=== PATIENT | male | born 1960 | race Caucasian/White ===

== ENCOUNTER → 2016-06-12 | Outpatient (CLI) | payer OTHER ==
[2016-06-12 10:29] LABS: MEAN CORPUSCULAR HEMOGLOBIN 31.4 pg (27.0-33.0); MEAN CORPUSCULAR VOLUME 89.7 fl (80.0-96.0); RED CELL DISTRIBUTION WIDTH 12.7 % (11.5-14.5); WHITE BLOOD COUNT 5.5 K/mm3 (4.0-10.0)
[2016-06-12 11:01] LABS: ALBUMIN 3.9 GM/DL (3.2-5.2); ALBUMIN/GLOBULIN RATIO 1.08 (1.00-1.93); ALKALINE PHOSPHATASE 100 U/L (45-117); ALT/SGPT 27 U/L (12-78); ANION GAP 4 MEQ/L (8-16); AST/SGOT 21 U/L (15-37); BILIRUBIN,TOTAL 0.9 MG/DL (0.2-1.0); BLOOD UREA NITROGEN 14 MG/DL (7-18); CALCIUM LEVEL 8.8 MG/DL (8.5-10.1); CARBON DIOXIDE LEVEL 33 MEQ/L (21-32); CHLORIDE LEVEL 104 MEQ/L (98-107); CHOLESTEROL LEVEL 178 MG/DL (<200); CREATININE FOR GFR 0.86 MG/DL (0.70-1.30); GLOMERULAR FILTRATION RATE > 60.0 (>56); GLUCOSE, FASTING 117 MG/DL (70-105); SODIUM LEVEL 141 MEQ/L (136-145); TOTAL PROTEIN 7.5 GM/DL (6.4-8.2); TRIGLYCERIDES LEVEL 121 MG/DL (<150)
--- NOTE | 2016-06-12 15:08 | REP ---
Chest two views HISTORY: Hypertension Comparison: 04/19/2015 An increase in interstitial markings is present in the lungs consistent with chronic interstitial change. The cardiac silhouette is enlarged. The pulmonary vasculature is normal in appearance. The bony structure is intact. IMPRESSION: 1. Chronic interstitial change. 2. Cardiomegaly. Signed by Vargas Thomas MD 06/12/2016 09:22 A
--- NOTE | 2016-06-12 17:51 | ECGEPIP ---
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
== END ==
LOC: M LAB 08:54
PROVIDERS: ATTEND Family Medicine
DX: I10 Essential (primary) hypertension (principal); R53.83 Other fatigue; I51.7 Cardiomegaly; J98.4 Other disorders of lung; R00.1 Bradycardia, unspecified

== ENCOUNTER → 2018-04-30 | Outpatient (CLI) | payer OTHER ==
[2018-04-30 11:03] LABS: HEMATOCRIT 44.2 % (42.0-52.0); HEMOGLOBIN 14.8 g/dl (13.5-17.5); MEAN CORPUSCULAR HEMOGLOBIN 29.7 pg (27.0-33.0); MEAN CORPUSCULAR HGB CONC 33.5 g/dl (32.0-36.5); MEAN CORPUSCULAR VOLUME 88.6 fl (80.0-96.0); PLATELET COUNT, AUTOMATED 183 10^3/uL (150-450); RED BLOOD COUNT 4.99 10^6/uL (4.30-6.10); WHITE BLOOD COUNT 5.1 10^3/uL (4.0-10.0)
[2018-04-30 11:30] LABS: HEMOGLOBIN A1c 7.9 %
[2018-04-30 11:38] LABS: ALBUMIN 3.7 GM/DL (3.2-5.2); ALT/SGPT 62 U/L (12-78); BILIRUBIN,TOTAL 1.4 MG/DL (0.2-1.0); BLOOD UREA NITROGEN 13 MG/DL (7-18); CALCIUM LEVEL 8.3 MG/DL (8.5-10.1); CARBON DIOXIDE LEVEL 31 MEQ/L (21-32); CHLORIDE LEVEL 106 MEQ/L (98-107); CHOLESTEROL LEVEL 148 MG/DL (<200); CHOLESTEROL RISK RATIO 5.481 (<5); CREATININE FOR GFR 0.85 MG/DL (0.70-1.30); GLOMERULAR FILTRATION RATE > 60.0 (>56); GLUCOSE, FASTING 118 MG/DL (70-100); HDL CHOLESTEROL 27 MG/DL (>40); LDL CHOLESTEROL 104 MG/DL (<100); NON-HDL-C 121 MG/DL; POTASSIUM SERUM 4.4 MEQ/L (3.5-5.1); SODIUM LEVEL 140 MEQ/L (136-145); THYROID STIMULATING HORMONE 0.319 uIU/ML (0.358-3.740); TOTAL PROTEIN 7.2 GM/DL (6.4-8.2); TRIGLYCERIDES LEVEL 84 MG/DL (<150)
[2018-05-01 10:18] LABS: TESTOSTERONE 428 NG/DL (241-827)
== END ==
LOC: M LAB 09:36
PROVIDERS: ATTEND Family Medicine
DX: I10 Essential (primary) hypertension (principal); R53.83 Other fatigue; N40.0 Benign prostatic hyperplasia without lower urinary tract symptoms; E29.1 Testicular hypofunction
CPT/HCPCS: 36415; 80053; 80061; 83036; 84403; 84443; 85027; G0103

== ENCOUNTER → 2019-07-16 | Outpatient (CLI) | payer OTHER ==
[2019-07-16 13:31] LABS: HEMATOCRIT 47.8 % (42.0-52.0); HEMOGLOBIN 16.5 g/dl (13.5-17.5); MEAN CORPUSCULAR HEMOGLOBIN 30.4 pg (27.0-33.0); MEAN CORPUSCULAR HGB CONC 34.5 g/dl (32.0-36.5); MEAN CORPUSCULAR VOLUME 88.2 fl (80.0-96.0); PLATELET COUNT, AUTOMATED 181 10^3/uL (150-450); RED BLOOD COUNT 5.42 10^6/uL (4.30-6.10); WHITE BLOOD COUNT 7.3 10^3/uL (4.0-10.0)
[2019-07-16 13:52] LABS: HEMOGLOBIN A1c 7.8 %
[2019-07-16 14:06] LABS: TESTOSTERONE 343 NG/DL (241-827)
[2019-07-16 14:22] LABS: ALT/SGPT 28 U/L (12-78); BILIRUBIN,TOTAL 1.5 MG/DL (0.2-1.0); BLOOD UREA NITROGEN 14 MG/DL (7-18); CALCIUM LEVEL 8.8 MG/DL (8.5-10.1); CARBON DIOXIDE LEVEL 27 MEQ/L (21-32); CHLORIDE LEVEL 102 MEQ/L (98-107); CHOLESTEROL LEVEL 198 MG/DL (<200); CHOLESTEROL RISK RATIO 5.823 (<5); CREATININE FOR GFR 0.74 MG/DL (0.70-1.30); GLOMERULAR FILTRATION RATE > 60.0 (>56); GLUCOSE, FASTING 142 MG/DL (70-100); HDL CHOLESTEROL 34 MG/DL (>40); LDL CHOLESTEROL 136 MG/DL (<100); NON-HDL-C 164 MG/DL; POTASSIUM SERUM 3.9 MEQ/L (3.5-5.1); PROSTATIC SPECIFIC AG MONITOR 0.46 NG/ML (< 4.00); SODIUM LEVEL 137 MEQ/L (136-145); THYROID STIMULATING HORMONE 0.525 uIU/ML (0.358-3.740); TRIGLYCERIDES LEVEL 138 MG/DL (<150)
--- NOTE | 2019-07-17 02:24 | REP ---
Clinical: Hypertension and fatigue. Technique: PA and lateral. Comparison: 06/12/2016. Findings: Mediastinum and cardiac silhouette are normal. Diffuse chronic COPD/emphysematous changes and scattered fibrosis/scarring are again suggested and relatively stable. No obvious acute consolidation, effusion, or pneumothorax. Skeletal structures are intact. Impression: Chronic stable changes. Electronically Signed by Ciaran Brody MD 07/17/2019 02:14 A
--- NOTE | 2019-07-18 07:41 | ECGEPIP ---
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
== END ==
LOC: M LAB 12:28
PROVIDERS: ATTEND Family Medicine
DX: I10 Essential (primary) hypertension (principal)

== ENCOUNTER 2019-12-01 15:13 | Inpatient (IN) | payer OTHER ==
[~2019-12-01] VITALS: Ht 185.4 cm; Wt 109.0 kg
[2019-12-01] MEDS ORDERED: NS 1,000 ML IV SCH ×2 (16:00→18:30)
[2019-12-01] MEDS ORDERED: ceFAZolin SOD 2 GM in IV 1 EA IV ONE (16:00)
--- NOTE | 2019-12-01 16:01 | REPVR ---
PROCEDURE INFORMATION: Exam: XR Left Finger(s) Exam date and time: 12/01/2019 3:23 PM Age: 59 years old Clinical indication: Injury or trauma; Other: Woodsplitter; Amputation, traumatic; Hand; Right; Additional info: Woodsplitter versus index finger TECHNIQUE: Imaging protocol: XR Left fingers. Views: Minimum 2 views. COMPARISON: No relevant prior studies available. FINDINGS: Bones/joints: Moderately displaced acute fracture of the distal metaphysis of the middle phalanx of the 2nd digit. Soft tissues: Generalized soft tissue swelling of the distal 2nd digit. IMPRESSION: Moderately displaced acute fracture of the distal metaphysis of the middle phalanx of the 2nd digit. Recommend orthopedic surgical consultation. Electronically signed by: Víctor Diez On 12/01/2019 16:00:47 PM
[2019-12-01] MEDS ORDERED: BOOSTRIX/ADACEL VACCINE (DIPHTH/PERTUSS/ACELL/TETANUS) 0.5ML SYR IM ONE (16:15)
[2019-12-01 16:21] LABS: BASO # 0.1 10^3/uL (0.0-0.2); EOS # 0.3 10^3/uL (0.0-0.5); EOS % 4.3 % (0.0-3.0); HEMATOCRIT 47.1 % (42.0-52.0); HEMOGLOBIN 15.4 g/dl (13.5-17.5); LYMPH # 1.9 10^3/uL (1.5-5.0); LYMPH % 23.5 % (24.0-44.0); MEAN CORPUSCULAR HGB CONC 32.7 g/dl (32.0-36.5); MEAN CORPUSCULAR VOLUME 88.7 fl (80.0-96.0); MONO # 0.5 10^3/uL (0.0-0.8); MONO % 6.6 % (0.0-5.0); NEUTROPHILS # 5.1 10^3/uL (1.5-8.5); NEUTROPHILS % 64.3 % (36.0-66.0); PLATELET COUNT, AUTOMATED 205 10^3/uL (150-450); RED BLOOD COUNT 5.31 10^6/uL (4.30-6.10); WHITE BLOOD COUNT 7.9 10^3/uL (4.0-10.0)
[2019-12-01 16:43] LABS: BLOOD UREA NITROGEN 17 MG/DL (7-18); CALCIUM LEVEL 8.7 MG/DL (8.5-10.1); CARBON DIOXIDE LEVEL 27 MEQ/L (21-32); CHLORIDE LEVEL 105 MEQ/L (98-107); CREATININE FOR GFR 1.05 MG/DL (0.70-1.30); GLOMERULAR FILTRATION RATE > 60.0 (>56); GLUCOSE, FASTING 139 MG/DL (70-100); POTASSIUM SERUM 3.7 MEQ/L (3.5-5.1); SODIUM LEVEL 139 MEQ/L (136-145)
[2019-12-01] MEDS ORDERED: VALS80TA PO (16:44)
[2019-12-01] MEDS ORDERED: OMEP-218 PO (16:44)
[2019-12-01] MEDS ORDERED: METF500T13 PO (16:44)
[2019-12-01] MEDS ORDERED: ATOR1TAB21 PO (16:44)
[2019-12-01] MEDS ORDERED: FLUTISP NARES (17:16)
[2019-12-01] MEDS ORDERED: propofoL 200 MG/20 ML VIAL As Ordered ONE ×3 (17:59→18:48)
[2019-12-01] MEDS ORDERED: LIDOCAINE 2% 100MG/5ML SDV (FOR ANES.) As Ordered ONE (17:59)
[2019-12-01] MEDS ORDERED: MIDAZOLAM INJ 2MG/2ML VIAL (J2250 PER 1MG) As Ordered ONE (17:59)
[2019-12-01] MEDS ORDERED: fentaNYL 100 MCG/2 ML INJECTION (J3010) As Ordered ONE (17:59)
[2019-12-01] MEDS ORDERED: BUPIVACAINE/EPIN 0.5% 30 ML VIAL As Ordered ONE (18:03)
[2019-12-01] MEDS ORDERED: ACETAMINOPHEN TAB 650MG DOSE (2X325MG) PO PRN (18:30)
[2019-12-01] MEDS ORDERED: ceFAZolin SOD 2 GM in D5W MINI-BAG PLUS 50 ML IV SCH (18:30)
[2019-12-01] MEDS ORDERED: SUCCINYLCHOLINE 100 MG/5 ML SYRINGE (J0330) As Ordered ONE (19:02)
[2019-12-01] MEDS ORDERED: KETOROLAC 60MG 2ML VIAL As Ordered ONE (19:03)
[2019-12-01] MEDS ORDERED: ONDANSETRON 4MG/2ML VIAL As Ordered ONE (19:03)
[2019-12-01] MEDS ORDERED: dexameTHASONE 4 MG/ML 1ML VIAL (J1100 PER 1MG) As Ordered ONE (19:03)
[2019-12-01] MEDS ORDERED: METOCLOPRAMIDE INJ 10MG/2ML VIAL (J2765 PER 1) As Ordered ONE (19:04)
[2019-12-01] MEDS ORDERED: ACETAMINOPHEN 1000MG 100ML IV BTL (OFIRMEV) (J0131 PER 10MG) As Ordered ONE (19:05)
[2019-12-01] MEDS ORDERED: ceFAZolin 1GM VIAL (J0690 PER 500MG) As Ordered ONE (19:09)
[2019-12-01] MEDS ORDERED: ALBUTEROL 6.7GM INHALER **FOR ANES. CART/OMNICELL ONLY As Ordered ONE (19:14)
--- NOTE | 2019-12-01 19:53 | REP ---
INDICATION: SURGERY COMPARISON: 12/01/2019 at 3:27 p.m. TECHNIQUE: Intraoperative fluoroscopic imaging using portable C-arm technique. FINDINGS: Partial amputation at the level of the 2nd digit middle phalanx with overlying soft tissue laceration. Total fluoroscopic time 8 seconds IMPRESSION: Status post partial amputation to the 2nd digit. <Electronically signed by Ciaran Brody > 12/01/19 1950
[2019-12-01 21:00] VITALS: BP 157/92
[2019-12-01] MEDS ORDERED: fentaNYL 100 MCG/2 ML INJECTION (J3010) IV PRN (21:00)
[2019-12-01] MEDS ORDERED: LR 1,000 ML IV SCH (21:00)
[2019-12-01] MEDS ORDERED: oxyCODONE 5MG TAB PO PRN (21:00)
[2019-12-01] MEDS ORDERED: PERCOCET 5MG/325MG TAB PO PRN (21:00)
[2019-12-01] MEDS ORDERED: ONDANSETRON 4MG/2ML VIAL IV PRN ×2 (21:00)
[2019-12-01] MEDS ORDERED: MORPHINE 2 MG/ML 1ML VIAL (J2270) IV PRN (21:00)
[2019-12-01 21:30] VITALS: BP 142/76
[2019-12-01 22:30] VITALS: BP 157/88
[2019-12-01 23:30] VITALS: BP 148/87
[2019-12-02 00:30] VITALS: BP_SYST 14; BP_SYST 144; BP_DIAS 84
[2019-12-02] MEDS: ceFAZolin SOD 2 GM in IV 1 EA IV SCH ×2 (00:39→08:34)
[2019-12-02 01:30] VITALS: BP 134/61
[2019-12-02 06:00] VITALS: BP 137/71
--- NOTE | 2019-12-03 13:04 | RO ---
DATE OF OPERATION: 12/01/2019 PREOPERATIVE DIAGNOSIS: Left index finger middle phalanx fracture, laceration and crush injury with extensor tendon laceration and collateral ligament injury. POSTOPERATIVE DIAGNOSIS: Left index finger middle phalanx fracture, laceration and crush injury with extensor tendon laceration and collateral ligament injury. PLANNED PROCEDURE: Left index finger revision amputation and irrigation and debridement. PROCEDURE PERFORMED: Left index finger revision amputation and irrigation and debridement. SURGEON: Benjamin Jay MD ANESTHESIA: Dr. Bennie Gorman TYPE OF ANESTHETIC: General anesthetic. OPERATIVE PREAMBLE: This 69-year-old man sustained an open finger fracture of left index finger after having it crushed by wood splitter. We discussed pros, cons, risks and benefits with going ahead with revision amputation of the left index finger. He wished to go ahead. Marked the left upper extremity and proceeded to surgery. OPERATIVE REPORT: The patient was brought to operating theater. He was administered general anesthetic. He was placed supine on the operating table. 2 gm of Ancef had been administered in the emergency department. Hand table was used for the patients left side. Tourniquet was applied to the upper extremity. All bony prominences were padded. SCDs were used on the down legs as well as bear hugger. Bed was turned 90 degrees. Limb was prepped and draped in usual sterile fashion with Iodine-based prep solution. Preoperative time out was performed confirming side, patient and surgery. I began by inflating the tourniquet to 250 mmHg. I examined the wound upon thorough irrigation using 3 liters normal saline and 3 gm of Ancef solution. I examined the fracture. This is a crush type injury with interarticular fracture of the distal aspect of the middle phalanx. Middle phalanx was slightly shortened. Distal aspect of the phalanx was removed. I used the skin on the plantar aspect of the finger to bring that around the distal aspect of the middle phalanx bone, smoothed out the distal phalanx portion. I took intraoperative AP and lateral radiographs to ensure that the contours were smooth and appropriately resected. There was another small laceration transversely on the palmar aspect of the digit that I sutured with 3-0 Vicryl and 3-0 Ethilon. This was a fishmouth type closure and I also used the preexisting dorsal oblique laceration incorporated into soft tissue repair. The subcutaneous tissue was closed with interrupted 2-0 Vicryl sutures and skin with 3-0 Ethilon. 1 mL of 0.5% Bupivacaine plain was used in and around the incision site. Tourniquet was taken down prior to the end of the case and hemostasis achieved. Skin was cleaned with wet-to-dry followed by Adaptic, ice, over- wrapped with Osorio type dressing. The patient was awoken from general anesthesia and transferred off the operating table and taken to postanesthesia care unit in stable condition. All sponge, instrument and needle counts were correct. No complications. Estimated blood loss 10 mL. Plan for patient is start immediate range of motion, change dressing daily and call the office within the next 4-5 days or other issues. Ice and elevation for pain control as well as I have given a small prescription for Percocet 5/325 mg tablets as well as starting him on oral Keflex 500 mg PO four times daily for the next 7 days to prevent infection. I will see him in follow up. I communicated with the patients after the surgery as well. TAMANNA
--- NOTE | 2019-12-04 07:00 | HPE ---
DATE OF ADMISSION: 12/01/2019 CHIEF COMPLAINT: Left index finger middle phalanx laceration and open fracture. HISTORY OF PRESENT ILLNESS: This pleasant 59-year-old man right hand dominant was seen today in the emergency department at [facility]. He sustained an injury to his left index finger at about 03/2019 this afternoon, about an hour before I saw him. He was administered tetanus and cefazolin antibiotics for prophylaxis. No prior history of pain or problems with the finger. N.p.o. since this morning only some Cheetos, but he also had some water prior to presenting to the emergency department. He was splitting wood with the help of his . His was operating the hand controls of the wood splitter. He had his hand on top of the machine, his tripped, and pulled the lever of the splitting device that came down onto the dorsum of his left index finger causing a soft tissue laceration crushing to the region of his index finger. PAST MEDICAL HISTORY: 1. Dyslipidemia. 2. Hypertension. 3. Diabetes. MEDICATIONS: He is unsure, but he is on something for hypertension, dyslipidemia, and metformin. No anticoagulants. ALLERGIES: DOXYCYCLINE PAST SURGICAL HISTORY: Knee arthroscopy procedure. 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 He does not smoke or use street drugs or alcohol. PHYSICAL EXAMINATION: He is a well-appearing and pleasant 59-year-old man in no acute distress. In terms of his left index finger, he has a dorsal laceration on the entire dorsum of the middle finger just proximal to the distal interphalangeal (DIP) joint. There is exposed phalanx. The extensor tendon is crushed and macerated. The joint is dislocated and has valgus deformity. The tip of the finger is warm and well-perfused. Good capillary refill. No nail injury. He is able to flex the DIP, but not extend. There is also a laceration transversely at the volar side of the finger at the DIP crease. The distal aspect of the finger is obviously unstable to varus stress. No other injury. Hand is warm and well-perfused. Strong radial pulse. IMAGING: Radiographs are reviewed of the left hand. This shows a complex intraarticular fracture of the distal end of the middle phalanx. It appears to be a condylar fracture with lateral subluxation, shortening, and dislocation of the DIP joint with the distal fragment going radially. There is an obvious open soft tissue injury. ASSESSMENT AND PLAN: This 59-year-old man has a complex injury open fracture intraarticular fracture to the distal aspect of the middle phalanx with intraarticular involvement, complex maceration of the joint, and obvious collateral ligament injury. I talked about his options, which include revision amputation versus referral to a hand specialist for open reduction internal fixation of the phalanx fracture, possible repair versus reconstruction of the extensor tendon and possible need for repair or reconstruction of the collateral ligament. He wished to go ahead with immediate revision amputation after discussion of the pros and cons, risks and benefits of each method of treatment. Typically with shortening the index finger, the middle finger takes over as the dominant finger of the hand and this is also on his nondominant side. We discussed the surgical risks of revision amputation and shortening the digit which include, but are not limited to infection, higher due to the type of wound that he has, as well as the soft tissue crush aspect of this, as well as neurovascular injury, pain, weakness, stiffness, damage to surrounding structures, need for further surgery, weakness of the finger, damage to other structures, anesthetic complications, blood clots, and other risks, need for further surgery. He wished to go ahead and signed the consent form for surgery. We will keep him fasting in preparation for revision amputation of his left index finger. He also signed the consent form for possible for blood products, and I explained the pros, cons, risks, and benefits of that as well. We have placed wet gauze over top of the open fracture while he is planning surgery. He had no further questions. TAMANNA
--- NOTE | 2019-12-11 13:04 | DS ---
DATE OF ADMISSION: 12/01/2019 DATE OF DISCHARGE: 12/02/2019 ATTENDING PHYSICIAN: Benjamin Jay M.D. ADMITTING DIAGNOSIS: Left finger middle phalanx fracture, laceration and crush injury with extensor tendon laceration and collateral ligament injury. OTHER DIAGNOSES: * Dyslipidemia. * Hypertension. * Diabetes. DISCHARGE DIAGNOSIS: Left index finger middle phalanx fracture/laceration and crush injury with extensor tendon laceration and collateral ligament injury status post left index finger revision, amputation and irrigation and debridement. HISTORY: Patient is a 59-year-old male that sustained an injury to his left index finger. He was splitting wood to help his . His was operating the hand controls of the wood splitter. He had his hand on top of the machine and his tripped pulling the lever off the splitting device that came down on the dorsal surface of his left index finger causing a soft tissue laceration/crushing injury to the region of the left index finger. OPERATION PERFORMED: Left index finger revision, amputation and irrigation and debridement. HOSPITAL COURSE: The patient underwent a left index finger revision, amputation and irrigation and debridement under general anesthesia which was uneventful. His hospital course was without complication. He was discharged on oral pain medications and will resume his pre-operative medications and diet. He will take his antibiotic as directed to prevent infection. He will ice and elevate for pain control. He will follow up in our office in 1 week or sooner if there is any increase in pain, redness, drainage, numbness or tingling, fever greater than 101 degrees or any other concerns. Please see medical records for additional details. TAMANNA
== END 2019-12-02 11:00 | disposition home or self-care (01) | DRG 514 ==
LOC: M ED 15:13 → M ED INP 18:16 → M MS5PR 20:50
PROVIDERS: ADMIT Orthopaedic Surgery Sports Medicine; ATTEND Orthopaedic Surgery Sports Medicine
PROC: 0JQK0ZZ Repair Left Hand Subcutaneous Tissue and Fascia, Open Approach (ICD-10-PCS; 2019-12-01)
PROC: 0X6R0Z3 Detachment at Left Middle Finger, Low, Open Approach (ICD-10-PCS; principal; 2019-12-01 17:49)
DX: S62.621B Displaced fracture of middle phalanx of left index finger, initial encounter for open fracture (principal); E78.5 Hyperlipidemia, unspecified; S67.192A Crushing injury of right middle finger, initial encounter; I10 Essential (primary) hypertension; E11.9 Type 2 diabetes mellitus without complications; W31.89XA Contact with other specified machinery, initial encounter; Y92.009 Unspecified place in unspecified non-institutional (private) residence as the place of occurrence of the external cause; Y93.H9 Activity, other involving exterior property and land maintenance, building and construction; Y99.8 Other external cause status; Z79.84 Long term (current) use of oral hypoglycemic drugs; Z79.899 Other long term (current) drug therapy

== ENCOUNTER → 2020-02-16 | Outpatient (CLI) | payer OTHER ==
[~2020-02-16] MED LIST: ATOR1TAB21 PO; FLUTISP NARES; METF500T13 PO; OMEP-218 PO; VALS80TA PO
[2020-02-16 18:39] LABS: HEMATOCRIT 47.3 % (42.0-52.0); HEMOGLOBIN 15.2 g/dl (13.5-17.5); MEAN CORPUSCULAR HEMOGLOBIN 28.7 pg (27.0-33.0); MEAN CORPUSCULAR HGB CONC 32.1 g/dl (32.0-36.5); MEAN CORPUSCULAR VOLUME 89.4 fl (80.0-96.0); PLATELET COUNT, AUTOMATED 207 10^3/uL (150-450); RED BLOOD COUNT 5.29 10^6/uL (4.30-6.10); WHITE BLOOD COUNT 6.3 10^3/uL (4.0-10.0)
[2020-02-16 18:54] LABS: ALT/SGPT 25 U/L (12-78); BLOOD UREA NITROGEN 23 MG/DL (7-18); CALCIUM LEVEL 8.5 MG/DL (8.5-10.1); CARBON DIOXIDE LEVEL 27 MEQ/L (21-32); CHLORIDE LEVEL 102 MEQ/L (98-107); CREATININE FOR GFR 1.01 MG/DL (0.70-1.30); GLOMERULAR FILTRATION RATE > 60.0 (>56); GLUCOSE, FASTING 190 MG/DL (70-100); POTASSIUM SERUM 3.9 MEQ/L (3.5-5.1); SODIUM LEVEL 136 MEQ/L (136-145)
[2020-02-16 18:55] LABS: ALBUMIN 3.7 GM/DL (3.2-5.2); CHOLESTEROL LEVEL 176 MG/DL (<200); HDL CHOLESTEROL 40 MG/DL (>40); LDL CHOLESTEROL 117 MG/DL (<100); NON-HDL-C 136 MG/DL; PROSTATIC SPECIFIC AG MONITOR 0.45 NG/ML (< 4.00); THYROID STIMULATING HORMONE 0.766 uIU/ML (0.358-3.740); TOTAL PROTEIN 7.6 GM/DL (6.4-8.2); TRIGLYCERIDES LEVEL 95 MG/DL (<150)
[2020-02-16 19:00] LABS: HEMOGLOBIN A1c 6.9 %
[2020-02-18 11:02] LABS: TESTOSTERONE 290 NG/DL (241-827)
== END ==
LOC: M WUC 09:05
PROVIDERS: ATTEND Family Medicine
DX: E03.9 Hypothyroidism, unspecified (principal); I10 Essential (primary) hypertension; E11.9 Type 2 diabetes mellitus without complications; R53.83 Other fatigue

== ENCOUNTER 2020-03-15 07:34 | Emergency (ER) | payer OTHER ==
[~2020-03-15] VITALS: Ht 185.4 cm; Wt 113.7 kg
--- OUTSIDE RECORDS SUMMARY | 2020-03-15 07:40 | CCD | Continuity of Care Document ---
Author Author Joseph HUANG MD Organization Unknown Address [address] [place] [address], [address] [place] [address] Phone [phone] Care Team Providers Care Enterostomal Therapy Nurse Name Role Phone Bijal Darden M.D. AUTM [phone] AUTM Unavailable Problems Active Problems Provider Date Sleep apnea Ariadna Gutiérrez M.D. Onset: Disturbance of consciousness Ariadna Gutiérrez M.D. O nset: 07/30/2015 Posterior rhinorrhea Ariadna Gutiérrez M.D. Onset: Other insomnia not due to a substance or known physiol ogical condition Ariadna Gutiérrez M.D. Onset: 07/30/2015 Ex-smoker Ariadna Gutiérrez M.D. Onset: Periodic limb movement disorder Catie Collins Onset: 11/27/2015 Social History Type Date Description Comments Sex Unknown Tobacco Use Start: Unknown End: Patient is a former smoker hx: 1/2ppd since age 16 Smoking Status Reviewed: 03/26/19 Patient is a former smoker hx : 1/2ppd since age 16 Allergies, Adverse Reactions, Alerts Description No Known Drug Allergies Medications Active Medications SIG Qnty Indications Ordering Provide r Date Fluticasone Propionate Nasal [place] 50mcg/Act Suspension 1 spray each nostril every day 9.900ml A bernardo Gutiérrez M.D. 03/13/[address] 1 by mouth twice a day Unknown Atorvastatin Calcium 20mg Tablets 1 tab by mouth every day Unknown Testosterone Cypionate injection every month Un known CPAP +7 [place] Unknown Losartan Potassium 50mg Tablets 1 tab by mouth every day Unknown Immunizations CPT Code Status Date Vaccine Lot # [id number] Given 12/01/2015 Influenza Virus Split 3 Yrs And Above For Intramuscular Use Vital Signs Date Vital Result Comment 12/12/2019 11:20am Body Temperature 96.9 F 03/26/2019 3:30pm BP Systolic 140 mmHg BP Diastolic 90 mmHg Heart Rate 65 /min O2 % BldC Oximetry 96 % Height 72 inches 6'0" Weight 249.00 lb BMI (Body Mass Index) 33.8 kg/m2 [place] Body Weight 178 lb Weight 112.946 kg Results Description No Information Available Procedures Description No Information Available Medical Devices Description No Information Available Encounters Type Date Location Provider Dx Diagnosis Office Visit 12/17/2019 8:30a [facility] Benjamin Huang MD Z47.89 Encounter for other orthopedic aftercare S68.121D Partial traumatic MCP amputa tion of left index finger, subs Office Visit 12/12/2019 11:20a [facility] Benjamin Huang MD S68.121A Partial traumatic MCP amputation of left index finger, init Assessments Date Code Description Provider 12/17/2019 Z47.89 Encounter for other orthopedic a ftercare Benjamin Huang MD 12/17/2019 S68.121D Partial traumatic me tacarpophalangeal amputation of left index finger, subsequent encounter Benjamin Huang MD 12/12/2019 S68.121A Partial traumatic me tacarpophalangeal amputation of left index finger, initial encounter Benjamin Huang MD Plan of Treatment Future Appointment(s):* 03/31/2020 3:45 pm - Lynn Tucker, N.P. at [facility] Pulmonary/Thoracic 12/17/2019 - Benjamin Huang MD* Z47.89 Encounter for other orthopedic aftercare * S68.121D Partial traumatic metacarpophalangeal amputation of left index finger, subsequent encounter Functional Status Functional Condition Comment Date Status Independent with all ADL's Activ e Independent with all IADL's Acti ve Mental Status Mental Condition Comment Date Status Cognitive ability not impaired A ctive Referrals Description No Information Available
--- OUTSIDE RECORDS SUMMARY | 2020-03-15 07:40 | CCD | Continuity of Care Document ---
Author Author Joseph HUANG MD Organization Unknown Address [address] [place] [address], [address] [place] [address] Phone [phone] Care Team Providers Care Sleep Tech Name Role Phone Bijal Darden M.D. AUTM [phone] AUTM Unavailable Problems Active Problems Provider Date [...] Ordering Provide r Date Fluticasone Propionate Nasal [place] 50mcg/Act Suspension 1 spray each nostril every [...] CPT Code Status Date Vaccine Lot # [id number] Given 12/01/2015 Influenza Virus Split 3 Yrs And Above For Intramuscular Use Vital Signs Date Vital Result Comment 12/12/2019 11:20am Body Temperature 96.9 F 03/26/2019 3:30pm BP Systolic 140 mmHg BP Diastolic 90 mmHg Heart Rate 65 /min O2 % BldC Oximetry 96 % Height 72 inches 6'0" Weight 249.00 lb BMI (Body Mass Index) 33.8 kg/m2 [place] Body Weight 178 lb Weight 112.946 kg BSA (Body Surface Area) 2.34 m2 Results Description No Information Available Procedures Description No Information Available Medical Devices Description No Information Available Encounters Type Date Location Provider Dx Diagnosis Office Visit 12/17/2019 8:30a [facility] Benjamin Huang MD S67.191D Crushing injury of left index finger, irizarry bsequent encounter S61.211D Laceration w/o fb of l idx f ngr w/o damage to nail, subs S68.121D Partial traumatic MCP amputa tion of left index finger, subs Office Visit 12/12/2019 11:20a [facility] Benjamin Huang MD S67.191D Crushing injury of left index finger, irizarry bsequent encounter S62.621D Disp fx of middle phalanx of left index finger, 7thD S66.321D Lacerat extn musc/fasc/tend l idx fngr at wrs/hnd lv, subs S61.211D Laceration w/o fb of l idx f ngr w/o damage to nail, subs Assessments Date Code Description Provider 01/21/2020 S67.191D Crushing injury of left index fi nger, subsequent encounter Benjamin Huang MD 01/21/2020 S61.211D Laceration without f oreign body of left index finger without damage to nail, subsequent encounter Benjamin Huang MD 01/21/2020 S68.121D Partial traumatic me tacarpophalangeal amputation of left index finger, subsequent encounter Benjamin Huang MD 12/17/2019 S67.191D Crushing injury of left index fi nger, subsequent encounter Benjamin Huang MD 12/17/2019 S61.211D Laceration without f oreign body of left index finger without damage to nail, subsequent encounter Benjamin Huang MD 12/17/2019 S68.121D Partial traumatic me tacarpophalangeal amputation of left index finger, subsequent encounter Benjamin Huang MD 12/12/2019 S67.191D Crushing injury of left index fi nger, subsequent encounter Benjamin Huang MD 12/12/2019 S62.621D Displaced fracture o f middle phalanx of left index finger, subsequent encounter for fracture with routine healing Benjamin Huang MD 12/12/2019 S66.321D Laceration of extens or muscle, fascia and tendon of left index finger at wrist and hand level, subsequent encounter Benjamin Huang MD 12/12/2019 S61.211D Laceration without f oreign body of left index finger without damage to nail, subsequent encounter Benjamin Huang MD Plan of Treatment Future Appointment(s):* 03/31/2020 3:45 pm - Lynn Tucker, N.P. at [facility] Pulmonary/Thoracic 01/21/2020 - Benjamin Huang MD* S67.191D Crushing injury of left index finger, subsequent encounter* Follow up:* prn * S61.211D Laceration without foreign body of left index finger without damage to nail, subsequent encounter * S68.121D Partial traumatic metacarpophalangeal amputation of left index finger, subsequent encounter Functional Status Functional Condition Comment Date Status Independent with all ADL's Activ e Independent with all IADL's Acti ve Mental Status Mental Condition Comment Date Status Cognitive ability not impaired A ctive Referrals Description No Information Available
--- OUTSIDE RECORDS SUMMARY | 2020-03-15 07:40 | CCD ---
Author Author [facility] Organization [facility] Address Unknown Phone Unavailable Care Team Providers Care Analysis Specialist Name Role Phone Jnuie Jay MD Unavailable Unavailable Mollison, Junie Alexander MD Unavailable Unavailable MollisonJunie MD Unavailable Unavailable Mollison, Junie Alexander MD Unavailable Unavailable Mollison, Junie Alexander MD Unavailable Unavailable Mollison, Junie Alexander MD Unavailable Unavailable Mollison, Junie Alexander MD Unavailable Unavailable Mollison, Junie Alexander MD Unavailable Unavailable MollisonJunie MD Unavailable Unavailable Mollison, Junie Alexandre MD Unavailable Unavailable MollisonJunie MD Unavailable Unavailable MollisonJunie MD Unavailable Unavailable Mollison, Junie Alexadner MD Unavailable Unavailable MollisonJunie MD Unavailable Unavailable MollisonJunie MD Unavailable Unavailable MollisonJunie MD Unavailable Unavailable MollisonJunie MD Unavailable Unavailable MollisonJunie MD Unavailable Unavailable MollisonJunie MD Unavailable Unavailable MollisonJunie MD Unavailable Unavailable MollisonJunie MD Unavailable Unavailable MollisonJunie MD Unavailable Unavailable Re-disclosure Warning The records that you are about to access may contain information from federally-assisted alcohol or drug abuse programs. If such information is present, then the following federally mandated warning applies: This information has been disclosed to you from records protected by federal confidentiality rules (42 CFR part 2). The federal rules prohibit you from making any further disclosure of this information unless further disclosure is expressly permitted by the written consent of the person to whom it pertains or as otherwise permitted by 42 CFR part 2. A general authorization for the release of medical or other information is NOT sufficient for this purpose. The Federal rules restrict any use of the information to criminally investigate or prosecute any alcohol or drug abuse patient.The records that you are about to access may contain highly sensitive health information, the redisclosure of which is protected by Article 27-F of the [facility] Public Health law. If you continue you may have access to information: Regarding HIV / AIDS; Provided by facilities licensed or operated by the [facility] Office of Mental Health; or Provided by the [facility] Office for People With Developmental Disabilities. If such information is present, then the following [facility] mandated warning applies: This information has been disclosed to you from confidential records which are protected by state law. State law prohibits you from making any further disclosure of this information without the specific written consent of the person to whom it pertains, or as otherwise permitted by law. Any unauthorized further disclosure in violation of state law may result in a fine or fci sentence or both. A general authorization for the release of medical or other information is NOT sufficient authorization for further disc losure. Family History Family Member Name Family Member Gender Family Member Status Date o f Status Description Data Source(s) Unknown Male Problem MEDENT ([facility], ) () Unknown Female Problem MEDENT ([facility]) Encounters Encounter Providers Location Date Indications Data Source(s ) Office Visit Attender: Benjamin Mendez/Alessio/Won/Re indl 12/17/2019 07:30:00 AM EST [facility] ([facility], ) Office Visit Attender: Benjamin Mendez/Alessio/Won/Re indl 12/12/2019 11:20:00 AM EDT MED[facility] ([facility], ) Medications Medication Brand Name Start Date Product Form Dose Route Admi nistrative Instructions Pharmacy Instructions Status Indications Reaction Description Data Source(s) 50 mg 01/24/2020 12:00:00 AM EST tablet 21 TAKE ONE TABLET BY MOUTH THREE TIMES A DAY MAXIMUM DAILY DOSE = THREE TABLETS TAKE ONE TABLET BY MOUTH THREE TIMES A DAY MAXIMUM DAILY DOSE = THREE TABLETS SOLD: 01/24/2020 [facility] 5-325 mg 12/02/2019 12:00:00 AM EDT tablet 28 TAKE 1-2 TABLETS BY MOUTH EVERY 4 HOURS NEEDED FOR POST-OP PAIN MAXIMUM DAILY DOSE = 8 TAKE 1-2 TABLETS BY MOUTH EVERY 4 HOURS NEEDED FOR POST-OP PAIN MAXIMUM DAILY DOSE = 8 SOLD: 12/02/2019 [facility] 500 mg 12/02/2019 12:00:00 AM EDT capsule 28 TAKE ONE CAPSULE BY MOUTH FOUR TIMES A DAY FOR 7 DAYS TAKE ONE CAPSULE BY MOUTH FOUR TIMES A DAY FOR 7 DAYS SOLD: 12/02/2019 [facility] Metformin hydrochloride 500 MG Oral Tablet METFORMIN HCL 10/29/2019 12:00:00 AM EDT tablet 180 TAKE ONE TABLET BY MOUTH TWI CE A DAY TAKE ONE TABLET BY MOUTH TWICE A DAY SOLD: 10/29/2019 [facility] 500 mg 07/24/2019 12:00:00 AM EDT tablet 180 TAKE ONE TABLET BY MOUTH TWICE A DAY TAKE ONE TABLET BY MOUTH TWICE A DAY SOLD: 07/24/2019 [facility] 100 mg 07/16/2019 12:00:00 AM EDT capsule 30 TAKE ONE CAPSULE BY MOUTH EVERY DAY TAKE ONE CAPSULE BY MOUTH EVERY DAY SOLD: 07/17/2019 [facility] 50 mcg/actuation 03/15/2019 12:00:00 AM EST spray,suspension 16 SPRAY ONE SPRAY IN EACH NOSTRIL EVERY DAY SPRAY ONE SPRAY IN EACH NOSTRIL EVERY DAY SOLD: 01/29/2020 [facility] 50 mcg/actuation 03/15/2019 12:00:00 AM EST spray,suspension 16 SPRAY ONE SPRAY IN EACH NOSTRIL EVERY DAY SPRAY ONE SPRAY IN EACH NOSTRIL EVERY DAY SOLD: 07/13/2019 [facility] 50 mcg/actuation 03/15/2019 12:00:00 AM EST spray,suspension 16 SPRAY ONE SPRAY IN EACH NOSTRIL EVERY DAY SPRAY ONE SPRAY IN EACH NOSTRIL EVERY DAY SOLD: 05/22/2019 [facility] 50 mcg/actuation 03/15/2019 12:00:00 AM EST spray,suspension 16 SPRAY ONE SPRAY IN EACH NOSTRIL EVERY DAY SPRAY ONE SPRAY IN EACH NOSTRIL EVERY DAY SOLD: 03/17/2019 [facility] 50 mcg/actuation 03/15/2019 12:00:00 AM EST spray,suspension 16 SPRAY ONE SPRAY IN EACH NOSTRIL EVERY DAY SPRAY ONE SPRAY IN EACH NOSTRIL EVERY DAY SOLD: 11/07/2019 [facility] 50 mcg/actuation 03/15/2019 12:00:00 AM EST spray,suspension 16 SPRAY ONE SPRAY IN EACH NOSTRIL EVERY DAY SPRAY ONE SPRAY IN EACH NOSTRIL EVERY DAY SOLD: 12/06/2019 [facility] 50 mcg/actuation 03/15/2019 12:00:00 AM EST spray,suspension 16 SPRAY ONE SPRAY IN EACH NOSTRIL EVERY DAY SPRAY ONE SPRAY IN EACH NOSTRIL EVERY DAY SOLD: 09/26/2019 [facility] 150 mg 02/21/2019 12:00:00 AM EST tablet 6 TAKE ONE TABLET BY MOUTH ONCE WEEKLY TAKE ONE TABLET BY MOUTH ONCE WEEKLY SOLD: 02/22/2019 [facility] 50 mcg/actuation 03/13/2018 12:00:00 AM EST spray,suspension 16 SPRAY ONE SPRAY IN EACH NOSTRIL EVERY DAY SPRAY ONE SPRAY IN EACH NOSTRIL EVERY DAY SOLD: 02/03/2019 [facility] Insurance Providers Payer name Policy type / Coverage type Policy ID Covered republican ID Covered republican's relationship to helton Policy [place] Plan Information [facility] [id number] [place]2 [id number] [facility] O [id number] S [id number] [facility] Commercial [id number] Self [id number] [employer] ([employer]MO) [id number] Fa juan Dependent [id number] [employer] (HMO) [id number] Fa juan Dependent [id number] [employer] [id number] [place] [id number] [employer] P[employer] O [id number] S [id number] BS [place] Medig[employer] Part B Self [employer] (pr) Commercial Family Dependent [id number] Social History Code Duration Value Status Description Data Source(s ) Smoking 03/26/2019 12:00:00 AM EST - 02/14/1991 12:00:00 AM EST Patient is a former smoker completed Patient is a former smoker [facility] ([facility], ) Vital Signs ID Date Data Source UNK Name Value Range Interpretation Code Description Data Source(s) Body temperature 96.9 [degF] 96.9 [degF] [facility] ([facility], ) Body surface area Derived from formula 2.34 m2 2.34 m2 [facility] ([facility], ) Body weight 112.946 kg 112.946 kg [facility] ([facility], ) [place] body weight 178 [lb_av] 178 [lb_av] [facility] Body mass index (BMI) [Ratio] 33.8 kg/m2 33.8 k g/m2 [facility] ([facility]) Body weight 249.00 [lb_av] 249.00 [lb_av] [facility] ([facility], ) Body height 72 [in_i] 72 [in_i] [facility] ([facility], ) 6'0" Oxygen saturation in Arterial blood by Pulse oximetry 96 % 96 % [facility] ([facility]) Heart rate 65 /min 65 /min [facility] ([facility], ) Diastolic blood pressure 90 mm[Hg] 90 mm[Hg] [facility] ([facility]) Systolic blood pressure 140 mm[Hg] 140 mm[Hg] Carmenza [facility] ([facility], )
--- NOTE | 2020-03-15 08:25 | REP ---
INDICATION: DIP and PIP inflammation, decreased mobility x 5 hours. COMPARISON: None. TECHNIQUE: AP and lateral views as requested. FINDINGS: Two views of the right hand demonstrate osteoarthritic changes at the 1st carpometacarpal articulation and the IP joint of the thumb. There is minimal spurring at the DIP joints of the index and long fingers. No erosive changes are seen. Overall mineralization pattern is normal. Subcortical cyst formation is seen in the greater multangular associated with the osteoarthritis here.. No fracture or subluxation is seen. No opaque foreign body noted. IMPRESSION: Osteoarthritic changes. No acute bony abnormality seen.. <Electronically signed by Panda Vazquez > 03/15/20 [id number]
--- OUTSIDE RECORDS SUMMARY | 2020-03-15 08:48 | CCD ---
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 If you continue you may have access to information: Regarding HIV / AIDS; Provided by facilities licensed or operated by the [facility] Office of Mental Health; or Provided by the [facility] Office for People With Developmental Disabilities. If such information is present, then the following [facility] mandated warning applies: This information has been [...] law may result in a fine or mcfp sentence or both. A general authorization for the release of medical or other information is NOT sufficient authorization for further disc losure. Family History Family Member Name Family Member Gender Family Member Status Date o f Status Description Data Source(s) Unknown Male Problem MEDENT ([facility], ) () Unknown Female Problem MEDENT ([facility]) Encounters Encounter Providers Location Date Indications Data Source(s ) Office Visit Attender: Benjamin Mendez/Alessio/Won/Re indl 12/17/2019 07:30:00 AM EST MED[facility] ([facility], ) Office Visit Attender: Benjamin Mendez/Alessio/Won/Re indl 12/12/2019 11:20:00 AM EDT [facility] ([facility], ) Medications Medication Brand Name Start Date [...] IN EACH NOSTRIL EVERY DAY SOLD: 02/03/2019 [facility] Insurance Providers Payer name Policy type / Coverage type Policy ID Covered libertarian ID Covered libertarian's relationship to helton Policy [place] Plan Information [facility] [id number] WI2 [id number] [facility] O [id number] S [id number] Commercial [id number] Self [id number] [employer] (HMO) [id number] Fa juan Dependent [id number] [employer]) [id number] Fa juan Dependent [id number] [employer] [id number] [place]2 [id number] [employer] PPO O [id number] S [id number] BS [place] Medigap Part B Self [employer] (pr) Commercial Family Dependent [id number] Social History Code Duration Value Status Description Data Source(s ) Smoking 03/26/2019 12:00:00 AM EST - 02/14/1991 12:00:00 AM EST Patient is a former smoker completed Patient is a former smoker [facility] ([facility], ) Vital Signs ID Date Data Source UNK Name Value Range Interpretation Code Description Data Source(s) Body temperature 96.9 [degF] 96.9 [degF] [facility] ([facility], ) Body surface area Derived from formula 2.34 m2 2.34 m2 [facility] ([facility], ) Body weight 112.946 kg 112.946 kg [facility] ([facility], ) [place] body weight 178 [lb_av] 178 [lb_av] [facility] ([facility], ) Body mass index (BMI) [Ratio] 33.8 kg/m2 33.8 k g/m2 [facility] ([facility], ) Body weight 249.00 [lb_av] 249.00 [lb_av] [facility], ) Body height 72 [in_i] 72 [in_i] [facility] ([facility], ) 6'0" Oxygen saturation in Arterial blood by Pulse oximetry 96 % 96 % [facility] ([facility], ) Heart rate 65 /min 65 /min [facility] ([facility], ) Diastolic blood pressure 90 mm[Hg] 90 mm[Hg] [facility] ([facility], ) Systolic blood pressure 140 mm[Hg] 140 mm[Hg] Carm[facility] ([facility], )
[2020-03-15 09:01] VITALS: BP 160/92
[2020-03-18 17:07] LABS: ANA (HEP2) Positive (.); CYCLIC CITRULLINATED PEPTIDE > 250 units (0-19)
== END 2020-03-15 09:02 | disposition home or self-care (01) ==
LOC: M ED 07:34
DX: M19.041 Primary osteoarthritis, right hand (principal); E11.9 Type 2 diabetes mellitus without complications; I10 Essential (primary) hypertension; Z79.899 Other long term (current) drug therapy; Z88.1 Allergy status to other antibiotic agents

== ENCOUNTER → 2020-05-09 | Outpatient (REF) | payer OTHER ==
[2020-05-09 16:39] LABS: APPEARANCE, URINE CLEAR (CLEAR); BACTERIA, URINE AUTO NEGATIVE (NEGATIVE); BILIRUBIN, URINE AUTO NEGATIVE (NEGATIVE); BLOOD, URINE BLOOD NEGATIVE (NEGATIVE); COLOR, URINE YELLOW (YELLOW); GLUCOSE, URINE (UA) AUTO NEGATIVE (NEGATIVE); KETONE, URINE AUTO NEGATIVE (NEGATIVE); LEUKOCYTE ESTERASE, URINE AUTO NEGATIVE (NEGATIVE); MUCUS, URINE SMALL (NEGATIVE); NITRITE, URINE AUTO NEGATIVE (NEGATIVE); PROTEIN, URINE AUTO NEGATIVE (NEGATIVE); RBC, URINE AUTO 1 /HPF (0-3); SQUAMOUS EPITHELIAL CELL UR AU 0 /HPF (0-6); WBC, URINE AUTO 0 /HPF (0-3)
[2020-05-09 16:51] LABS: BASO # 0.1 10^3/uL (0.0-0.2); BASO % 0.9 % (0.0-1.0); EOS # 0.1 10^3/uL (0.0-0.5); EOS % 2.2 % (0.0-3.0); HEMATOCRIT 47.3 % (42.0-52.0); HEMOGLOBIN 15.5 g/dl (13.5-17.5); LYMPH # 1.6 10^3/uL (1.5-5.0); LYMPH % 25.3 % (24.0-44.0); MEAN CORPUSCULAR HGB CONC 32.8 g/dl (32.0-36.5); MEAN CORPUSCULAR VOLUME 88.6 fl (80.0-96.0); MONO # 0.5 10^3/uL (0.0-0.8); MONO % 7.8 % (2.0-8.0); NEUTROPHILS # 4.1 10^3/uL (1.5-8.5); NEUTROPHILS % 63.5 % (36.0-66.0); PLATELET COUNT, AUTOMATED 187 10^3/uL (150-450); RED BLOOD COUNT 5.34 10^6/uL (4.30-6.10); WHITE BLOOD COUNT 6.4 10^3/uL (4.0-10.0)
[2020-05-09 17:16] LABS: CREATININE,RANDOM URINE 98.6 MG/DL; TOTAL PROTEIN,RANDOM URINE 19.2 MG/DL (0.0-12.0)
[2020-05-09 17:19] LABS: ALBUMIN 4.1 GM/DL (3.2-5.2); ALT/SGPT 28 U/L (12-78); BILIRUBIN,DIRECT 0.3 MG/DL (0.0-0.2); BILIRUBIN,TOTAL 1.1 MG/DL (0.2-1.0); BLOOD UREA NITROGEN 23 MG/DL (7-18); CALCIUM LEVEL 9.2 MG/DL (8.5-10.1); CARBON DIOXIDE LEVEL 28 MEQ/L (21-32); CHLORIDE LEVEL 106 MEQ/L (98-107); COMPLEMENT C3 137 MG/DL (90-180); COMPLEMENT C4 25 MG/DL (10-40); CREATININE FOR GFR 0.81 MG/DL (0.70-1.30); GLOMERULAR FILTRATION RATE > 60.0 (>56); GLUCOSE, FASTING 137 MG/DL (70-100); POTASSIUM SERUM 3.8 MEQ/L (3.5-5.1); SODIUM LEVEL 138 MEQ/L (136-145)
[2020-05-09 17:25] LABS: HEPATITIS B SURFACE ANTIBODY NEGATIVE (POSITIVE)
[2020-05-09 17:36] LABS: HEPATITIS B SURFACE ANTIGEN NEGATIVE (NEGATIVE)
[2020-05-09 18:04] LABS: HEPATITIS C VIRUS ABY INDEX < 0.0 INDEX (<0.8)
[2020-05-09 19:33] LABS: ERYTHROCYTE SEDIMENTATION RATE 15 mm/hr (0-20)
== END ==
LOC: M SFHCRHEU 10:34
PROVIDERS: ATTEND Internal Medicine
DX: M06.4 Inflammatory polyarthropathy (principal)

== ENCOUNTER → 2020-05-09 | Outpatient (CLI) | payer OTHER ==
--- NOTE | 2020-05-09 15:29 | REPPI ---
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 COMPARISON: Comparison radiographs of the right hand 15 March 2020.. TECHNIQUE: Bilateral wrist series: 8 views. FINDINGS: Four views of each wrist demonstrate overall normal mineralization. There is osteoarthritic narrowing and sclerosis at the 1st carpometacarpal articulation on the left and right wrist. Joint spaces are otherwise preserved. No erosive changes seen. Periarticular soft tissues are unremarkable. IMPRESSION: Bilateral 1st carpometacarpal joint osteoarthritis. Otherwise negative wrist radiographs. <Electronically signed by Panda Vazquez > 05/09/20 [id number]
--- NOTE | 2020-05-09 15:30 | REPPI ---
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 COMPARISON: Comparison hand radiographs 15 March 2020 right hand series.. TECHNIQUE: Bilateral hand series: 8 views total. FINDINGS: Four views of the right and left hand demonstrate bilateral 1st carpometacarpal joint osteoarthritic narrowing and sclerosis. The distal phalanx of the index finger on the left is been amputated along with the distal aspect of the middle phalanx. There is some overlying soft tissue swelling. Minimal spurring is seen at the IP joint of the left thumb and at the IP joint of the right thumb. Overall mineralization pattern is normal.. No fracture or subluxation is seen. No opaque foreign body noted. IMPRESSION: Osteoarthritic changes. Status post amputation injury index finger left hand.. <Electronically signed by Panda Vazquez > 05/09/20 [id number]
--- NOTE | 2020-05-09 16:03 | REPPI ---
INDICATION: M06.4 UNDIFFERENTIATED INFLAMMATORY ARTHRITIS COMPARISON: None. TECHNIQUE: There are four views of the right ankle and four views of the left ankle. FINDINGS: Right ankle: There is no fracture or dislocation. Mineralization and joint spaces are normal. There are no calcifications or foreign bodies. Left ankle: There is no fracture or dislocation. Mineralization and joint spaces are normal. There are no calcifications or foreign bodies. IMPRESSION: Negative right and left ankles. . <Electronically signed by Mesfin White > 05/09/20 1600
--- NOTE | 2020-05-09 16:05 | REPPI ---
INDICATION: M06.4 UNDIFFERENTIATED INFLAMMATORY ARTHRITIS COMPARISON: None. TECHNIQUE: There are four views of each foot. FINDINGS: Right foot: There is no fracture or dislocation. Mineralization and joint spaces are normal. There are no calcifications or foreign bodies. Left foot: There is no fracture or dislocation. Mineralization and joint spaces are normal. There are no calcifications or foreign bodies. IMPRESSION: Negative right foot and negative left foot. . <Electronically signed by Mesfin White > 05/09/20 [id number]
== END ==
LOC: M PLAIMG 11:06
PROVIDERS: ATTEND Internal Medicine
DX: M06.4 Inflammatory polyarthropathy (principal); M18.4 Other bilateral secondary osteoarthritis of first carpometacarpal joints; Z89.022 Acquired absence of left finger(s)

== ENCOUNTER → 2020-07-08 | Outpatient (REF) | payer OTHER ==
[2020-07-08 17:39] LABS: BASO # 0.1 10^3/uL (0.0-0.2); BASO % 0.8 % (0.0-1.0); EOS # 0.2 10^3/uL (0.0-0.5); EOS % 2.9 % (0.0-3.0); HEMATOCRIT 44.9 % (42.0-52.0); LYMPH # 2.1 10^3/uL (1.5-5.0); LYMPH % 28.6 % (24.0-44.0); MEAN CORPUSCULAR HEMOGLOBIN 29.4 pg (27.0-33.0); MEAN CORPUSCULAR HGB CONC 33.4 g/dl (32.0-36.5); MONO # 0.6 10^3/uL (0.0-0.8); MONO % 7.7 % (2.0-8.0); NEUTROPHILS # 4.4 10^3/uL (1.5-8.5); NEUTROPHILS % 59.6 % (36.0-66.0); PLATELET COUNT, AUTOMATED 210 10^3/uL (150-450); WHITE BLOOD COUNT 7.3 10^3/uL (4.0-10.0)
[2020-07-08 17:52] LABS: ALBUMIN 3.9 GM/DL (3.2-5.2); ALT/SGPT 29 U/L (12-78); BILIRUBIN,DIRECT 0.2 MG/DL (0.0-0.2); BILIRUBIN,TOTAL 1.1 MG/DL (0.2-1.0); BLOOD UREA NITROGEN 21 MG/DL (7-18); CALCIUM LEVEL 9.6 MG/DL (8.5-10.1); CARBON DIOXIDE LEVEL 28 MEQ/L (21-32); CHLORIDE LEVEL 103 MEQ/L (98-107); CREATININE FOR GFR 1.03 MG/DL (0.70-1.30); GLOMERULAR FILTRATION RATE > 60.0 (>56); GLUCOSE, FASTING 132 MG/DL (70-100); POTASSIUM SERUM 3.8 MEQ/L (3.5-5.1); SODIUM LEVEL 139 MEQ/L (136-145); TOTAL PROTEIN 7.6 GM/DL (6.4-8.2)
[2020-07-08 18:11] LABS: ERYTHROCYTE SEDIMENTATION RATE 11 mm/hr (0-20)
== END ==
LOC: M PLALAB 15:26
PROVIDERS: ATTEND Internal Medicine
DX: M05.9 Rheumatoid arthritis with rheumatoid factor, unspecified (principal)

== ENCOUNTER → 2020-08-08 | Outpatient (REF) | payer OTHER ==
[2020-08-08 17:13] LABS: BASO # 0.1 10^3/uL (0.0-0.2); BASO % 1.1 % (0.0-1.0); EOS # 0.3 10^3/uL (0.0-0.5); EOS % 4.2 % (0.0-3.0); HEMATOCRIT 43.6 % (42.0-52.0); HEMOGLOBIN 14.4 g/dl (13.5-17.5); LYMPH # 1.9 10^3/uL (1.5-5.0); LYMPH % 28.9 % (24.0-44.0); MEAN CORPUSCULAR HEMOGLOBIN 29.6 pg (27.0-33.0); MEAN CORPUSCULAR VOLUME 89.7 fl (80.0-96.0); MONO # 0.5 10^3/uL (0.0-0.8); MONO % 7.1 % (2.0-8.0); NEUTROPHILS # 3.8 10^3/uL (1.5-8.5); NEUTROPHILS % 58.2 % (36.0-66.0); PLATELET COUNT, AUTOMATED 200 10^3/uL (150-450); RED BLOOD COUNT 4.86 10^6/uL (4.30-6.10); WHITE BLOOD COUNT 6.6 10^3/uL (4.0-10.0)
[2020-08-08 17:43] LABS: ALBUMIN 3.9 GM/DL (3.2-5.2); ALT/SGPT 29 U/L (12-78); BILIRUBIN,DIRECT 0.3 MG/DL (0.0-0.2); BLOOD UREA NITROGEN 20 MG/DL (7-18); CALCIUM LEVEL 8.8 MG/DL (8.5-10.1); CARBON DIOXIDE LEVEL 28 MEQ/L (21-32); CHLORIDE LEVEL 103 MEQ/L (98-107); CREATININE FOR GFR 1.06 MG/DL (0.70-1.30); GLOMERULAR FILTRATION RATE > 60.0 (>56); GLUCOSE, FASTING 181 MG/DL (70-100); POTASSIUM SERUM 3.7 MEQ/L (3.5-5.1); SODIUM LEVEL 139 MEQ/L (136-145); TOTAL PROTEIN 7.5 GM/DL (6.4-8.2)
[2020-08-08 17:45] LABS: ERYTHROCYTE SEDIMENTATION RATE 11 mm/hr (0-20)
== END ==
LOC: M PLALAB 15:40
PROVIDERS: ATTEND Nurse Practitioner Family
DX: M05.9 Rheumatoid arthritis with rheumatoid factor, unspecified (principal)

== ENCOUNTER → 2020-09-02 | Outpatient (CLI) | payer OTHER ==
[2020-09-02 18:05] LABS: BASO # 0.1 10^3/uL (0.0-0.2); BASO % 0.9 % (0.0-1.0); EOS # 0.2 10^3/uL (0.0-0.5); EOS % 2.8 % (0.0-3.0); HEMATOCRIT 44.8 % (42.0-52.0); HEMOGLOBIN 14.7 g/dl (13.5-17.5); LYMPH # 2.3 10^3/uL (1.5-5.0); LYMPH % 30.9 % (24.0-44.0); MEAN CORPUSCULAR HEMOGLOBIN 29.9 pg (27.0-33.0); MEAN CORPUSCULAR HGB CONC 32.8 g/dl (32.0-36.5); MEAN CORPUSCULAR VOLUME 91.1 fl (80.0-96.0); MONO # 0.6 10^3/uL (0.0-0.8); MONO % 8.3 % (2.0-8.0); NEUTROPHILS # 4.3 10^3/uL (1.5-8.5); NEUTROPHILS % 56.8 % (36.0-66.0); PLATELET COUNT, AUTOMATED 197 10^3/uL (150-450); RED BLOOD COUNT 4.92 10^6/uL (4.30-6.10); WHITE BLOOD COUNT 7.6 10^3/uL (4.0-10.0)
[2020-09-02 18:27] LABS: ALT/SGPT 32 U/L (12-78); BILIRUBIN,DIRECT 0.3 MG/DL (0.0-0.2); BILIRUBIN,TOTAL 1.3 MG/DL (0.2-1.0); BLOOD UREA NITROGEN 22 MG/DL (7-18); CALCIUM LEVEL 9.7 MG/DL (8.8-10.2); CARBON DIOXIDE LEVEL 32 MEQ/L (21-32); CHLORIDE LEVEL 103 MEQ/L (98-107); CREATININE FOR GFR 0.92 MG/DL (0.70-1.30); GLOMERULAR FILTRATION RATE > 60.0 (>49); GLUCOSE, FASTING 104 MG/DL (70-100); POTASSIUM SERUM 4.2 MEQ/L (3.5-5.1); SODIUM LEVEL 139 MEQ/L (136-145); TOTAL PROTEIN 7.8 GM/DL (6.4-8.2)
[2020-09-02 18:30] LABS: ERYTHROCYTE SEDIMENTATION RATE 8 mm/hr (0-20)
== END ==
LOC: M LAB 17:22
PROVIDERS: ATTEND Internal Medicine
DX: M05.9 Rheumatoid arthritis with rheumatoid factor, unspecified (principal)

== ENCOUNTER → 2020-10-03 | Outpatient (CLI) | payer OTHER ==
[2020-10-03 12:32] LABS: BASO # 0.1 10^3/uL (0.0-0.2); BASO % 0.9 % (0.0-1.0); EOS # 0.2 10^3/uL (0.0-0.5); EOS % 2.5 % (0.0-3.0); HEMATOCRIT 44.9 % (42.0-52.0); HEMOGLOBIN 15.2 g/dl (13.5-17.5); LYMPH # 1.7 10^3/uL (1.5-5.0); LYMPH % 24.8 % (24.0-44.0); MEAN CORPUSCULAR HEMOGLOBIN 30.8 pg (27.0-33.0); MEAN CORPUSCULAR HGB CONC 33.9 g/dl (32.0-36.5); MEAN CORPUSCULAR VOLUME 91.1 fl (80.0-96.0); MONO # 0.5 10^3/uL (0.0-0.8); NEUTROPHILS # 4.4 10^3/uL (1.5-8.5); NEUTROPHILS % 64.4 % (36.0-66.0); PLATELET COUNT, AUTOMATED 206 10^3/uL (150-450); RED BLOOD COUNT 4.93 10^6/uL (4.30-6.10); WHITE BLOOD COUNT 6.9 10^3/uL (4.0-10.0)
[2020-10-03 12:59] LABS: ALBUMIN 3.7 GM/DL (3.2-5.2); ALT/SGPT 30 U/L (12-78); BILIRUBIN,DIRECT 0.3 MG/DL (0.0-0.2); BILIRUBIN,TOTAL 1.2 MG/DL (0.2-1.0); BLOOD UREA NITROGEN 14 MG/DL (7-18); CALCIUM LEVEL 8.8 MG/DL (8.8-10.2); CARBON DIOXIDE LEVEL 28 MEQ/L (21-32); CHLORIDE LEVEL 103 MEQ/L (98-107); CREATININE FOR GFR 0.78 MG/DL (0.70-1.30); GLOMERULAR FILTRATION RATE > 60.0 (>49); GLUCOSE, FASTING 172 MG/DL (70-100); POTASSIUM SERUM 3.9 MEQ/L (3.5-5.1); SODIUM LEVEL 136 MEQ/L (136-145); TOTAL PROTEIN 7.4 GM/DL (6.4-8.2)
[2020-10-03 13:12] LABS: ERYTHROCYTE SEDIMENTATION RATE 5 mm/hr (0-20)
== END ==
LOC: M WUC 10:09
PROVIDERS: ATTEND Internal Medicine
DX: M05.9 Rheumatoid arthritis with rheumatoid factor, unspecified (principal)

== ENCOUNTER → 2020-10-28 | Outpatient (CLI) | payer OTHER ==
[2020-10-28 17:28] LABS: BASO # 0.1 10^3/uL (0.0-0.2); BASO % 0.8 % (0.0-1.0); EOS # 0.2 10^3/uL (0.0-0.5); EOS % 3.1 % (0.0-3.0); HEMATOCRIT 43.4 % (42.0-52.0); HEMOGLOBIN 14.7 g/dl (13.5-17.5); LYMPH % 28.3 % (24.0-44.0); MEAN CORPUSCULAR HEMOGLOBIN 30.9 pg (27.0-33.0); MEAN CORPUSCULAR HGB CONC 33.9 g/dl (32.0-36.5); MEAN CORPUSCULAR VOLUME 91.2 fl (80.0-96.0); MONO # 0.5 10^3/uL (0.0-0.8); MONO % 7.2 % (2.0-8.0); NEUTROPHILS # 4.3 10^3/uL (1.5-8.5); NEUTROPHILS % 59.9 % (36.0-66.0); PLATELET COUNT, AUTOMATED 200 10^3/uL (150-450); RED BLOOD COUNT 4.76 10^6/uL (4.30-6.10); WHITE BLOOD COUNT 7.1 10^3/uL (4.0-10.0)
[2020-10-28 17:50] LABS: ALBUMIN 3.8 GM/DL (3.2-5.2); ALT/SGPT 32 U/L (12-78); BILIRUBIN,DIRECT 0.3 MG/DL (0.0-0.2); BILIRUBIN,TOTAL 1.2 MG/DL (0.2-1.0); BLOOD UREA NITROGEN 13 MG/DL (7-18); CALCIUM LEVEL 9.3 MG/DL (8.8-10.2); CARBON DIOXIDE LEVEL 30 MEQ/L (21-32); CHLORIDE LEVEL 103 MEQ/L (98-107); CREATININE FOR GFR 0.85 MG/DL (0.70-1.30); GLOMERULAR FILTRATION RATE > 60.0 (>49); GLUCOSE, FASTING 148 MG/DL (70-100); POTASSIUM SERUM 3.8 MEQ/L (3.5-5.1); SODIUM LEVEL 137 MEQ/L (136-145); TOTAL PROTEIN 7.4 GM/DL (6.4-8.2)
[2020-10-28 18:41] LABS: ERYTHROCYTE SEDIMENTATION RATE 8 mm/hr (0-20)
== END ==
LOC: M PLALAB 14:59
PROVIDERS: ATTEND Internal Medicine
DX: M05.9 Rheumatoid arthritis with rheumatoid factor, unspecified (principal)

== ENCOUNTER → 2020-11-28 | Outpatient (CLI) | payer OTHER ==
[2020-11-28 16:01] LABS: BASO # 0.1 10^3/uL (0.0-0.2); BASO % 0.9 % (0.0-1.0); EOS # 0.3 10^3/uL (0.0-0.5); EOS % 3.9 % (0.0-3.0); HEMATOCRIT 42.5 % (42.0-52.0); HEMOGLOBIN 14.6 g/dl (13.5-17.5); LYMPH # 2.2 10^3/uL (1.5-5.0); LYMPH % 32.1 % (24.0-44.0); MEAN CORPUSCULAR HEMOGLOBIN 31.5 pg (27.0-33.0); MEAN CORPUSCULAR HGB CONC 34.4 g/dl (32.0-36.5); MEAN CORPUSCULAR VOLUME 91.6 fl (80.0-96.0); MONO # 0.5 10^3/uL (0.0-0.8); MONO % 7.2 % (2.0-8.0); NEUTROPHILS # 3.9 10^3/uL (1.5-8.5); NEUTROPHILS % 55.6 % (36.0-66.0); PLATELET COUNT, AUTOMATED 197 10^3/uL (150-450); RED BLOOD COUNT 4.64 10^6/uL (4.30-6.10)
[2020-11-28 16:23] LABS: ALBUMIN 3.8 GM/DL (3.2-5.2); ALT/SGPT 32 U/L (12-78); BILIRUBIN,DIRECT 0.3 MG/DL (0.0-0.2); BILIRUBIN,TOTAL 1.3 MG/DL (0.2-1.0); BLOOD UREA NITROGEN 20 MG/DL (7-18); CALCIUM LEVEL 9.2 MG/DL (8.8-10.2); CARBON DIOXIDE LEVEL 29 MEQ/L (21-32); CHLORIDE LEVEL 102 MEQ/L (98-107); CREATININE FOR GFR 0.93 MG/DL (0.70-1.30); GLOMERULAR FILTRATION RATE > 60.0 (>49); GLUCOSE, FASTING 100 MG/DL (70-100); POTASSIUM SERUM 3.9 MEQ/L (3.5-5.1); SODIUM LEVEL 137 MEQ/L (136-145); TOTAL PROTEIN 7.3 GM/DL (6.4-8.2)
[2020-11-28 16:25] LABS: ERYTHROCYTE SEDIMENTATION RATE 7 mm/hr (0-20)
== END ==
LOC: M PLALAB 13:41
PROVIDERS: ATTEND Internal Medicine
DX: M05.9 Rheumatoid arthritis with rheumatoid factor, unspecified (principal)

== ENCOUNTER → 2020-12-22 | Outpatient (CLI) | payer OTHER ==
[2020-12-22 11:25] LABS: BASO # 0.1 10^3/uL (0.0-0.2); EOS # 0.3 10^3/uL (0.0-0.5); EOS % 3.6 % (0.0-3.0); HEMATOCRIT 45.2 % (42.0-52.0); HEMOGLOBIN 15.2 g/dl (13.5-17.5); LYMPH # 2.2 10^3/uL (1.5-5.0); LYMPH % 30.5 % (24.0-44.0); MEAN CORPUSCULAR HGB CONC 33.6 g/dl (32.0-36.5); MEAN CORPUSCULAR VOLUME 92.2 fl (80.0-96.0); MONO # 0.6 10^3/uL (0.0-0.8); MONO % 8.2 % (2.0-8.0); NEUTROPHILS # 4.1 10^3/uL (1.5-8.5); PLATELET COUNT, AUTOMATED 240 10^3/uL (150-450); WHITE BLOOD COUNT 7.3 10^3/uL (4.0-10.0)
[2020-12-22 11:48] LABS: ALBUMIN 3.9 GM/DL (3.2-5.2); ALT/SGPT 29 U/L (12-78); BILIRUBIN,DIRECT 0.3 MG/DL (0.0-0.2); BILIRUBIN,TOTAL 1.4 MG/DL (0.2-1.0); BLOOD UREA NITROGEN 17 MG/DL (7-18); CALCIUM LEVEL 9.4 MG/DL (8.8-10.2); CARBON DIOXIDE LEVEL 28 MEQ/L (21-32); CHLORIDE LEVEL 102 MEQ/L (98-107); CREATININE FOR GFR 0.96 MG/DL (0.70-1.30); GLOMERULAR FILTRATION RATE > 60.0 (>49); GLUCOSE, FASTING 145 MG/DL (70-100); POTASSIUM SERUM 4.1 MEQ/L (3.5-5.1); SODIUM LEVEL 137 MEQ/L (136-145); TOTAL PROTEIN 7.6 GM/DL (6.4-8.2)
[2020-12-22 12:08] LABS: ERYTHROCYTE SEDIMENTATION RATE 10 mm/hr (0-20)
== END ==
LOC: M PLALAB 08:17
PROVIDERS: ATTEND Internal Medicine
DX: M05.9 Rheumatoid arthritis with rheumatoid factor, unspecified (principal)

== ENCOUNTER → 2021-01-23 | Outpatient (CLI) | payer OTHER ==
[2021-01-23 15:21] LABS: BASO # 0.1 10^3/uL (0.0-0.2); BASO % 0.8 % (0.0-1.0); EOS # 0.2 10^3/uL (0.0-0.5); EOS % 2.8 % (0.0-3.0); HEMATOCRIT 44.3 % (42.0-52.0); LYMPH # 2.2 10^3/uL (1.5-5.0); LYMPH % 28.9 % (24.0-44.0); MEAN CORPUSCULAR HEMOGLOBIN 31.1 pg (27.0-33.0); MEAN CORPUSCULAR HGB CONC 33.9 g/dl (32.0-36.5); MEAN CORPUSCULAR VOLUME 91.7 fl (80.0-96.0); MONO # 0.6 10^3/uL (0.0-0.8); MONO % 7.8 % (2.0-8.0); NEUTROPHILS # 4.5 10^3/uL (1.5-8.5); NEUTROPHILS % 59.4 % (36.0-66.0); PLATELET COUNT, AUTOMATED 229 10^3/uL (150-450); RED BLOOD COUNT 4.83 10^6/uL (4.30-6.10); WHITE BLOOD COUNT 7.6 10^3/uL (4.0-10.0)
[2021-01-23 15:49] LABS: ALBUMIN 4.2 GM/DL (3.2-5.2); ALT/SGPT 31 U/L (12-78); BILIRUBIN,DIRECT 0.4 MG/DL (0.0-0.2); BILIRUBIN,TOTAL 1.8 MG/DL (0.2-1.0); BLOOD UREA NITROGEN 12 MG/DL (7-18); CALCIUM LEVEL 9.5 MG/DL (8.8-10.2); CARBON DIOXIDE LEVEL 29 MEQ/L (21-32); CHLORIDE LEVEL 101 MEQ/L (98-107); CREATININE FOR GFR 0.87 MG/DL (0.70-1.30); GLOMERULAR FILTRATION RATE > 60.0 (>49); GLUCOSE, FASTING 84 MG/DL (70-100); SODIUM LEVEL 137 MEQ/L (136-145); TOTAL PROTEIN 7.8 GM/DL (6.4-8.2)
[2021-01-23 15:58] LABS: ERYTHROCYTE SEDIMENTATION RATE 11 mm/hr (0-20)
== END ==
LOC: M PLALAB 13:38
PROVIDERS: ATTEND Internal Medicine
DX: M05.9 Rheumatoid arthritis with rheumatoid factor, unspecified (principal)

== ENCOUNTER → 2021-02-17 | Outpatient (CLI) | payer OTHER ==
[2021-02-17 17:27] LABS: BASO # 0.1 10^3/uL (0.0-0.2); EOS # 0.2 10^3/uL (0.0-0.5); EOS % 2.6 % (0.0-3.0); HEMATOCRIT 44.2 % (42.0-52.0); HEMOGLOBIN 14.9 g/dl (13.5-17.5); LYMPH % 29.2 % (24.0-44.0); MEAN CORPUSCULAR HEMOGLOBIN 30.8 pg (27.0-33.0); MEAN CORPUSCULAR HGB CONC 33.7 g/dl (32.0-36.5); MEAN CORPUSCULAR VOLUME 91.3 fl (80.0-96.0); MONO # 0.6 10^3/uL (0.0-0.8); MONO % 8.6 % (2.0-8.0); NEUTROPHILS # 3.9 10^3/uL (1.5-8.5); NEUTROPHILS % 57.7 % (36.0-66.0); PLATELET COUNT, AUTOMATED 219 10^3/uL (150-450); RED BLOOD COUNT 4.84 10^6/uL (4.30-6.10); WHITE BLOOD COUNT 6.8 10^3/uL (4.0-10.0)
[2021-02-17 17:54] LABS: ALT/SGPT 32 U/L (12-78); BILIRUBIN,DIRECT 0.3 MG/DL (0.0-0.2); BILIRUBIN,TOTAL 1.3 MG/DL (0.2-1.0); BLOOD UREA NITROGEN 14 MG/DL (7-18); CALCIUM LEVEL 9.4 MG/DL (8.8-10.2); CARBON DIOXIDE LEVEL 28 MEQ/L (21-32); CHLORIDE LEVEL 102 MEQ/L (98-107); CREATININE FOR GFR 0.94 MG/DL (0.70-1.30); GLOMERULAR FILTRATION RATE > 60.0 (>49); GLUCOSE, FASTING 98 MG/DL (70-100); POTASSIUM SERUM 3.7 MEQ/L (3.5-5.1); SODIUM LEVEL 138 MEQ/L (136-145); TOTAL PROTEIN 7.6 GM/DL (6.4-8.2)
[2021-02-17 18:56] LABS: ERYTHROCYTE SEDIMENTATION RATE 11 mm/hr (0-20)
== END ==
LOC: M PLALAB 15:34
PROVIDERS: ATTEND Internal Medicine
DX: M05.9 Rheumatoid arthritis with rheumatoid factor, unspecified (principal)

== ENCOUNTER → 2021-03-17 | Outpatient (CLI) | payer OTHER ==
[~2021-03-17] MED LIST changes: +OMEP-173 PO; -OMEP-218 PO
== END ==
LOC: M PLALAB 15:31
PROVIDERS: ATTEND Internal Medicine
DX: M05.9 Rheumatoid arthritis with rheumatoid factor, unspecified (principal)

== ENCOUNTER → 2021-04-11 | Outpatient (CLI) | payer OTHER ==
[2021-04-11 09:52] LABS: HEMATOCRIT 43.1 % (42.0-52.0); HEMOGLOBIN 14.4 g/dl (13.5-17.5); MEAN CORPUSCULAR HEMOGLOBIN 30.3 pg (27.0-33.0); MEAN CORPUSCULAR HGB CONC 33.4 g/dl (32.0-36.5); MEAN CORPUSCULAR VOLUME 90.7 fl (80.0-96.0); PLATELET COUNT, AUTOMATED 186 10^3/uL (150-450); RED BLOOD COUNT 4.75 10^6/uL (4.30-6.10); WHITE BLOOD COUNT 5.6 10^3/uL (4.0-10.0)
[2021-04-11 10:15] LABS: HEMOGLOBIN A1c 5.1 %
[2021-04-11 10:23] LABS: ALBUMIN 3.8 GM/DL (3.2-5.2); ALT/SGPT 22 U/L (12-78); BILIRUBIN,TOTAL 1.3 MG/DL (0.2-1.0); BLOOD UREA NITROGEN 16 MG/DL (7-18); CALCIUM LEVEL 9.1 MG/DL (8.8-10.2); CARBON DIOXIDE LEVEL 32 MEQ/L (21-32); CHLORIDE LEVEL 104 MEQ/L (98-107); CHOLESTEROL LEVEL 113 MG/DL (<200); CHOLESTEROL RISK RATIO 3.323 (<5); CREATININE FOR GFR 0.75 MG/DL (0.70-1.30); GLOMERULAR FILTRATION RATE > 60.0 (>49); GLUCOSE, FASTING 91 MG/DL (70-100); HDL CHOLESTEROL 34 MG/DL (>40); LDL CHOLESTEROL 69 MG/DL (<100); NON-HDL-C 79 MG/DL; POTASSIUM SERUM 4.3 MEQ/L (3.5-5.1); PROSTATIC SPECIFIC AG MONITOR 0.48 NG/ML (< 4.00); SODIUM LEVEL 141 MEQ/L (136-145); THYROID STIMULATING HORMONE 0.509 uIU/ML (0.358-3.740); TOTAL PROTEIN 7.3 GM/DL (6.4-8.2); TRIGLYCERIDES LEVEL 50 MG/DL (<150)
[2021-04-13 10:52] LABS: TESTOSTERONE 423 NG/DL (241-827)
== END ==
LOC: M LAB 09:18
PROVIDERS: ATTEND Family Medicine
DX: E03.9 Hypothyroidism, unspecified (principal); I10 Essential (primary) hypertension

== ENCOUNTER → 2021-04-15 | Outpatient (CLI) | payer OTHER ==
[2021-04-15 17:53] LABS: BASO # 0.1 10^3/uL (0.0-0.2); BASO % 0.8 % (0.0-1.0); EOS # 0.2 10^3/uL (0.0-0.5); EOS % 3.3 % (0.0-3.0); HEMATOCRIT 44.3 % (42.0-52.0); HEMOGLOBIN 14.8 g/dl (13.5-17.5); LYMPH % 32.9 % (24.0-44.0); MEAN CORPUSCULAR HEMOGLOBIN 30.3 pg (27.0-33.0); MEAN CORPUSCULAR HGB CONC 33.4 g/dl (32.0-36.5); MEAN CORPUSCULAR VOLUME 90.6 fl (80.0-96.0); MONO # 0.5 10^3/uL (0.0-0.8); NEUTROPHILS # 3.3 10^3/uL (1.5-8.5); NEUTROPHILS % 54.8 % (36.0-66.0); PLATELET COUNT, AUTOMATED 198 10^3/uL (150-450); RED BLOOD COUNT 4.89 10^6/uL (4.30-6.10)
[2021-04-15 18:23] LABS: ALT/SGPT 28 U/L (12-78); BILIRUBIN,DIRECT 0.3 MG/DL (0.0-0.2); BILIRUBIN,TOTAL 1.3 MG/DL (0.2-1.0); BLOOD UREA NITROGEN 15 MG/DL (7-18); CALCIUM LEVEL 9.3 MG/DL (8.8-10.2); CARBON DIOXIDE LEVEL 32 MEQ/L (21-32); CHLORIDE LEVEL 102 MEQ/L (98-107); CREATININE FOR GFR 0.83 MG/DL (0.70-1.30); GLOMERULAR FILTRATION RATE > 60.0 (>49); GLUCOSE, FASTING 78 MG/DL (70-100); POTASSIUM SERUM 4.2 MEQ/L (3.5-5.1); SODIUM LEVEL 138 MEQ/L (136-145); TOTAL PROTEIN 7.5 GM/DL (6.4-8.2)
[2021-04-15 19:52] LABS: ERYTHROCYTE SEDIMENTATION RATE 1 mm/hr (0-20)
== END ==
LOC: M PLALAB 15:37
PROVIDERS: ATTEND Internal Medicine
DX: M05.9 Rheumatoid arthritis with rheumatoid factor, unspecified (principal)

== ENCOUNTER → 2021-07-13 | Outpatient (CLI) | payer OTHER ==
[2021-07-13 09:00] LABS: BASO # 0.1 10^3/uL (0.0-0.2); BASO % 0.8 % (0.0-1.0); EOS # 1.7 10^3/uL (0.0-0.5); HEMATOCRIT 42.9 % (42.0-52.0); HEMOGLOBIN 14.3 g/dl (13.5-17.5); LYMPH # 2.3 10^3/uL (1.5-5.0); LYMPH % 27.8 % (24.0-44.0); MEAN CORPUSCULAR HEMOGLOBIN 31.4 pg (27.0-33.0); MEAN CORPUSCULAR HGB CONC 33.3 g/dl (32.0-36.5); MEAN CORPUSCULAR VOLUME 94.3 fl (80.0-96.0); MONO # 0.6 10^3/uL (0.0-0.8); MONO % 6.7 % (2.0-8.0); NEUTROPHILS # 3.7 10^3/uL (1.5-8.5); NEUTROPHILS % 44.2 % (36.0-66.0); PLATELET COUNT, AUTOMATED 176 10^3/uL (150-450); RED BLOOD COUNT 4.55 10^6/uL (4.30-6.10); WHITE BLOOD COUNT 8.4 10^3/uL (4.0-10.0)
[2021-07-13 09:25] LABS: ALBUMIN 3.5 GM/DL (3.2-5.2); ALT/SGPT 21 U/L (12-78); BILIRUBIN,DIRECT 0.2 MG/DL (0.0-0.2); BILIRUBIN,TOTAL 0.7 MG/DL (0.2-1.0); BLOOD UREA NITROGEN 11 MG/DL (7-18); CALCIUM LEVEL 9.9 MG/DL (8.8-10.2); CARBON DIOXIDE LEVEL 32 MEQ/L (21-32); CHLORIDE LEVEL 106 MEQ/L (98-107); CREATININE FOR GFR 0.76 MG/DL (0.70-1.30); GLOMERULAR FILTRATION RATE > 60.0 (>49); GLUCOSE, FASTING 104 MG/DL (70-100); POTASSIUM SERUM 4.6 MEQ/L (3.5-5.1); SODIUM LEVEL 141 MEQ/L (136-145); TOTAL PROTEIN 7.4 GM/DL (6.4-8.2)
[2021-07-13 09:45] LABS: ERYTHROCYTE SEDIMENTATION RATE 8 mm/hr (0-20)
== END ==
LOC: M LAB 08:29
PROVIDERS: ATTEND Internal Medicine
DX: M05.9 Rheumatoid arthritis with rheumatoid factor, unspecified (principal)

== ENCOUNTER → 2021-08-07 | Outpatient (REF) | payer OTHER ==
[2021-08-07 17:51] LABS: CREATININE, URINE 49.4 MG/DL; MALB URINE SIEMENS < 5.0 MG/L; MAU/CREAT RATIO 10.1 MCG/MG (0.0-30.0)
== END ==
LOC: M LAB REF 16:49
PROVIDERS: ATTEND Nurse Practitioner Family
DX: E11.65 Type 2 diabetes mellitus with hyperglycemia (principal)

== ENCOUNTER → 2021-10-11 | Outpatient (CLI) | payer OTHER ==
[~2021-10-11] MED LIST changes: +FOLI1TAB11 PO; +METF-838 PO; +METH2.5T48 PO; +TRUL0.5I SQ
== END ==
LOC: EDSEX → MERGE 11:20 → M LABSMTC 11:33
PROVIDERS: ATTEND Anesthesiology
DX: Z01.812 Encounter for preprocedural laboratory examination (principal)

== ENCOUNTER → 2021-10-12 | Outpatient (CLI) | payer OTHER ==
[2021-10-12 15:41] LABS: BASO # 0.1 10^3/uL (0.0-0.2); BASO % 0.9 % (0.0-1.0); EOS # 0.3 10^3/uL (0.0-0.5); HEMATOCRIT 44.1 % (42.0-52.0); HEMOGLOBIN 14.6 g/dl (13.5-17.5); LYMPH # 1.8 10^3/uL (1.5-5.0); LYMPH % 25.9 % (24.0-44.0); MEAN CORPUSCULAR HEMOGLOBIN 31.3 pg (27.0-33.0); MEAN CORPUSCULAR HGB CONC 33.1 g/dl (32.0-36.5); MEAN CORPUSCULAR VOLUME 94.4 fl (80.0-96.0); MONO # 0.6 10^3/uL (0.0-0.8); MONO % 8.3 % (2.0-8.0); NEUTROPHILS # 4.2 10^3/uL (1.5-8.5); NEUTROPHILS % 60.8 % (36.0-66.0); PLATELET COUNT, AUTOMATED 191 10^3/uL (150-450); RED BLOOD COUNT 4.67 10^6/uL (4.30-6.10)
[2021-10-12 16:28] LABS: ERYTHROCYTE SEDIMENTATION RATE 7 mm/hr (0-20)
[2021-10-12 17:56] LABS: ALBUMIN 3.7 GM/DL (3.2-5.2); ALT/SGPT 22 U/L (12-78); BILIRUBIN,DIRECT 0.3 MG/DL (0.0-0.2); BILIRUBIN,TOTAL 1.4 MG/DL (0.2-1.0); BLOOD UREA NITROGEN 12 MG/DL (7-18); CALCIUM LEVEL 9.1 MG/DL (8.8-10.2); CARBON DIOXIDE LEVEL 28 MEQ/L (21-32); CHLORIDE LEVEL 104 MEQ/L (98-107); CREATININE FOR GFR 0.75 MG/DL (0.70-1.30); GLOMERULAR FILTRATION RATE > 60.0 (>49); GLUCOSE, FASTING 87 MG/DL (70-100); POTASSIUM SERUM 3.8 MEQ/L (3.5-5.1); SODIUM LEVEL 137 MEQ/L (136-145); TOTAL PROTEIN 7.3 GM/DL (6.4-8.2)
== END ==
LOC: M PLALAB 12:35
PROVIDERS: ATTEND Internal Medicine
DX: M05.9 Rheumatoid arthritis with rheumatoid factor, unspecified (principal)

== ENCOUNTER 2021-10-15 06:54 | Day surgery (SDC) | payer OTHER ==
[~2021-10-15] VITALS: Ht 185.4 cm; Wt 89.8 kg
[~2021-10-15 06:54] MED LIST changes: +NS 1,000 ML IV ONE
[2021-10-15] MEDS ORDERED: fentaNYL 100 MCG/2 ML INJECTION As Ordered ONE (07:20)
[2021-10-15] MEDS ORDERED: propofoL 500 MG/50 ML VIAL As Ordered ONE (07:21)
[2021-10-15] MEDS ORDERED: LIDOCAINE 2% 100MG/5ML SDV (FOR ANES.) As Ordered ONE (07:21)
[2021-10-15 09:00] VITALS: BP 124/86
== END 2021-10-15 09:06 | disposition home or self-care (01) ==
LOC: EDSEX → M OPP 06:54 → MERGE 08:10 → M OPP 09:06 → EDUNIT# 11:00
PROVIDERS: ATTEND Surgery
DX: Z12.11 Encounter for screening for malignant neoplasm of colon (principal); K22.70 Barrett's esophagus without dysplasia; Z79.02 Long term (current) use of antithrombotics/antiplatelets; Z79.84 Long term (current) use of oral hypoglycemic drugs; Z79.899 Other long term (current) drug therapy; Z99.89 Dependence on other enabling machines and devices; E11.9 Type 2 diabetes mellitus without complications; G47.33 Obstructive sleep apnea (adult) (pediatric); I10 Essential (primary) hypertension
CPT/HCPCS: 43239; 45378; 88305; J3010

== ENCOUNTER → 2022-01-06 | Outpatient (CLI) | payer OTHER ==
[~2022-01-06] MED LIST changes: -NS 1,000 ML IV ONE
[2022-01-06 15:26] LABS: BASO # 0.1 10^3/uL (0.0-0.2); BASO % 0.9 % (0.0-1.0); EOS # 0.3 10^3/uL (0.0-0.5); HEMATOCRIT 43.4 % (42.0-52.0); HEMOGLOBIN 14.1 g/dl (13.5-17.5); LYMPH # 1.6 10^3/uL (1.5-5.0); MEAN CORPUSCULAR HEMOGLOBIN 31.1 pg (27.0-33.0); MEAN CORPUSCULAR HGB CONC 32.5 g/dl (32.0-36.5); MEAN CORPUSCULAR VOLUME 95.8 fl (80.0-96.0); MONO # 0.5 10^3/uL (0.0-0.8); MONO % 7.6 % (2.0-8.0); NEUTROPHILS # 4.1 10^3/uL (1.5-8.5); NEUTROPHILS % 62.3 % (36.0-66.0); PLATELET COUNT, AUTOMATED 198 10^3/uL (150-450); RED BLOOD COUNT 4.53 10^6/uL (4.30-6.10); WHITE BLOOD COUNT 6.6 10^3/uL (4.0-10.0)
[2022-01-06 16:06] LABS: ERYTHROCYTE SEDIMENTATION RATE 9 mm/hr (0-20)
[2022-01-06 18:04] LABS: ALT/SGPT 22 U/L (7.0-40); BILIRUBIN,DIRECT 0.5 MG/DL (<0.4); BILIRUBIN,TOTAL 1.3 MG/DL (0.3-1.2); BLOOD UREA NITROGEN 16 MG/DL (9-23); CALCIUM LEVEL 8.9 MG/DL (8.3-10.6); CARBON DIOXIDE LEVEL 30 MMOL/L (20-31); CHLORIDE LEVEL 101 MMOL/L (98-107); CREATININE FOR GFR 0.65 MG/DL (0.70-1.30); GLOMERULAR FILTRATION RATE > 60.0 (>49); GLUCOSE, FASTING 96 MG/DL (74-106); POTASSIUM SERUM 4.2 MMOL/L (3.5-5.1); SODIUM LEVEL 139 MMOL/L (136-145); TOTAL PROTEIN 7.1 G/DL (5.7-8.2)
== END ==
LOC: M PLALAB 13:57
PROVIDERS: ATTEND Internal Medicine
DX: M05.9 Rheumatoid arthritis with rheumatoid factor, unspecified (principal)

== ENCOUNTER → 2022-04-06 | Outpatient (CLI) | payer OTHER ==
[2022-04-06 13:37] LABS: C REACTIVE PROTEIN QUANTITATIV < 0.40 MG/DL (<1.0)
[2022-04-06 13:43] LABS: BASO # 0.1 10^3/uL (0.0-0.2); BASO % 0.9 % (0.0-1.0); EOS # 0.3 10^3/uL (0.0-0.5); EOS % 3.9 % (0.0-3.0); HEMATOCRIT 48.5 % (42.0-52.0); LYMPH # 1.9 10^3/uL (1.5-5.0); LYMPH % 28.7 % (24.0-44.0); MEAN CORPUSCULAR HEMOGLOBIN 31.4 pg (27.0-33.0); MEAN CORPUSCULAR VOLUME 95.1 fl (80.0-96.0); MONO # 0.5 10^3/uL (0.0-0.8); NEUTROPHILS # 3.8 10^3/uL (1.5-8.5); NEUTROPHILS % 58.3 % (36.0-66.0); PLATELET COUNT, AUTOMATED 202 10^3/uL (150-450); WHITE BLOOD COUNT 6.5 10^3/uL (4.0-10.0)
[2022-04-06 14:08] LABS: ERYTHROCYTE SEDIMENTATION RATE 15 mm/hr (0-20)
[2022-04-06 19:56] LABS: ALKALINE PHOSPHATASE 100 U/L (46-116); ALT/SGPT 23 U/L (7.0-40); AST/SGOT 21 U/L (<34); BILIRUBIN,DIRECT 0.4 MG/DL (<0.4); BILIRUBIN,TOTAL 1.4 MG/DL (0.3-1.2); BLOOD UREA NITROGEN 15 MG/DL (9-23); CARBON DIOXIDE LEVEL 30 MMOL/L (20-31); CHLORIDE LEVEL 101 MMOL/L (98-107); CREATININE FOR GFR 0.81 MG/DL (0.70-1.30); GLOMERULAR FILTRATION RATE > 60.0 (>49); GLUCOSE, FASTING 127 MG/DL (74-106); POTASSIUM SERUM 4.1 MMOL/L (3.5-5.1); SODIUM LEVEL 138 MMOL/L (136-145); TOTAL PROTEIN 7.3 G/DL (5.7-8.2)
== END ==
LOC: M PLALAB 09:50
PROVIDERS: ATTEND Internal Medicine
DX: M05.9 Rheumatoid arthritis with rheumatoid factor, unspecified (principal)

== ENCOUNTER → 2022-08-04 | Outpatient (CLI) | payer OTHER ==
[~2022-08-04] MED LIST changes: +FLUT50SP17 NARES; -FLUTISP NARES
[2022-08-04 15:48] LABS: BASO # 0.1 10^3/uL (0.0-0.2); BASO % 0.8 % (0.0-1.0); EOS # 0.2 10^3/uL (0.0-0.5); EOS % 3.6 % (0.0-3.0); HEMATOCRIT 42.3 % (42.0-52.0); HEMOGLOBIN 14.2 g/dl (13.5-17.5); LYMPH # 1.8 10^3/uL (1.5-5.0); LYMPH % 28.4 % (24.0-44.0); MEAN CORPUSCULAR HEMOGLOBIN 30.9 pg (27.0-33.0); MEAN CORPUSCULAR HGB CONC 33.6 g/dl (32.0-36.5); MEAN CORPUSCULAR VOLUME 92.2 fl (80.0-96.0); MONO # 0.6 10^3/uL (0.0-0.8); MONO % 9.1 % (2.0-8.0); NEUTROPHILS # 3.6 10^3/uL (1.5-8.5); NEUTROPHILS % 57.8 % (36.0-66.0); PLATELET COUNT, AUTOMATED 209 10^3/uL (150-450); RED BLOOD COUNT 4.59 10^6/uL (4.30-6.10); WHITE BLOOD COUNT 6.2 10^3/uL (4.0-10.0)
[2022-08-04 15:49] LABS: C REACTIVE PROTEIN QUANTITATIV < 0.40 MG/DL (<1.0)
[2022-08-04 15:51] LABS: ALKALINE PHOSPHATASE 91 U/L (46-116); ALT/SGPT 21 U/L (7.0-40); AST/SGOT 12 U/L (<34); BILIRUBIN,DIRECT 0.7 MG/DL (<0.4); BILIRUBIN,TOTAL 2.1 MG/DL (0.3-1.2); BLOOD UREA NITROGEN 14 MG/DL (9-23); CALCIUM LEVEL 9.4 MG/DL (8.3-10.6); CARBON DIOXIDE LEVEL 30 MMOL/L (20-31); CHLORIDE LEVEL 102 MMOL/L (98-107); CREATININE FOR GFR 0.77 MG/DL (0.70-1.30); GLOMERULAR FILTRATION RATE > 60.0 (>49); GLUCOSE, FASTING 86 MG/DL (74-106); POTASSIUM SERUM 3.7 MMOL/L (3.5-5.1); SODIUM LEVEL 138 MMOL/L (136-145); TOTAL PROTEIN 7.1 G/DL (5.7-8.2)
[2022-08-04 16:28] LABS: ERYTHROCYTE SEDIMENTATION RATE 27 mm/hr (0-20)
== END ==
LOC: M PLALAB 13:40
PROVIDERS: ATTEND Internal Medicine
DX: M05.9 Rheumatoid arthritis with rheumatoid factor, unspecified (principal)

== ENCOUNTER → 2022-08-12 | Outpatient (CLI) | payer OTHER ==
[2022-08-12 17:26] LABS: MAGNESIUM LEVEL 1.8 MG/DL (1.8-2.4)
[2022-08-12 17:29] LABS: TOTAL 25(OH) VITAMIN D 33.5 NG/ML (20.0-100.0)
== END ==
LOC: M LAB 16:24
PROVIDERS: ATTEND Internal Medicine
DX: R53.83 Other fatigue (principal)

== ENCOUNTER → 2022-11-04 | Outpatient (CLI) | payer OTHER ==
[2022-11-04 14:20] LABS: BASO # 0.1 10^3/uL (0.0-0.2); EOS # 0.2 10^3/uL (0.0-0.5); EOS % 3.2 % (0.0-3.0); HEMOGLOBIN 15.7 g/dl (13.5-17.5); LYMPH # 1.4 10^3/uL (1.5-5.0); LYMPH % 22.2 % (24.0-44.0); MEAN CORPUSCULAR HEMOGLOBIN 31.1 pg (27.0-33.0); MEAN CORPUSCULAR HGB CONC 32.7 g/dl (32.0-36.5); MONO # 0.5 10^3/uL (0.0-0.8); MONO % 8.5 % (2.0-8.0); NEUTROPHILS # 4.1 10^3/uL (1.5-8.5); NEUTROPHILS % 64.9 % (36.0-66.0); PLATELET COUNT, AUTOMATED 216 10^3/uL (150-450); RED BLOOD COUNT 5.05 10^6/uL (4.30-6.10); WHITE BLOOD COUNT 6.3 10^3/uL (4.0-10.0)
[2022-11-04 14:32] LABS: ERYTHROCYTE SEDIMENTATION RATE 21 mm/hr (0-20)
[2022-11-04 14:55] LABS: C REACTIVE PROTEIN QUANTITATIV < 0.40 MG/DL (<1.0)
[2022-11-04 14:57] LABS: ALBUMIN 4.4 G/DL (3.2-5.2); ALKALINE PHOSPHATASE 90 U/L (46-116); ALT/SGPT 24 U/L (7.0-40); AST/SGOT 22 U/L (<34); BILIRUBIN,DIRECT 0.8 MG/DL (<0.4); BILIRUBIN,TOTAL 2.3 MG/DL (0.3-1.2); BLOOD UREA NITROGEN 14 MG/DL (9-23); CALCIUM LEVEL 9.7 MG/DL (8.3-10.6); CARBON DIOXIDE LEVEL 30 MMOL/L (20-31); CHLORIDE LEVEL 101 MMOL/L (98-107); CREATININE FOR GFR 0.75 MG/DL (0.70-1.30); GLOMERULAR FILTRATION RATE > 60.0 (>49); GLUCOSE, FASTING 97 MG/DL (74-106); POTASSIUM SERUM 5.5 MMOL/L (3.5-5.1); SODIUM LEVEL 138 MMOL/L (136-145); TOTAL PROTEIN 7.9 G/DL (5.7-8.2)
== END ==
LOC: M PLALAB 09:13
PROVIDERS: ATTEND Internal Medicine
DX: M05.9 Rheumatoid arthritis with rheumatoid factor, unspecified (principal)

== ENCOUNTER → 2022-12-18 | Outpatient (CLI) | payer OTHER ==
[2022-12-18 11:07] LABS: BILIRUBIN,TOTAL 1.2 MG/DL (0.3-1.2); POTASSIUM SERUM 4.3 MMOL/L (3.5-5.1)
== END ==
LOC: M LAB 09:48
PROVIDERS: ATTEND Internal Medicine
DX: R17 Unspecified jaundice (principal)

== ENCOUNTER → 2022-12-18 | Outpatient (CLI) | payer OTHER ==
[2022-12-18 10:48] LABS: HEMATOCRIT 44.7 % (42.0-52.0); HEMOGLOBIN 15.2 g/dl (13.5-17.5); MEAN CORPUSCULAR HEMOGLOBIN 31.9 pg (27.0-33.0); MEAN CORPUSCULAR VOLUME 93.7 fl (80.0-96.0); PLATELET COUNT, AUTOMATED 209 10^3/uL (150-450); RED BLOOD COUNT 4.77 10^6/uL (4.30-6.10); WHITE BLOOD COUNT 6.4 10^3/uL (4.0-10.0)
[2022-12-18 11:06] LABS: PROSTATIC SPECIFIC AG MONITOR 0.31 NG/ML (< 4.00)
[2022-12-18 11:07] LABS: HEMOGLOBIN A1c 5.1 % (4.0-6.0)
[2022-12-18 11:09] LABS: ALBUMIN 3.9 G/DL (3.2-5.2); ALKALINE PHOSPHATASE 99 U/L (46-116); ALT/SGPT 20 U/L (7.0-40); AST/SGOT 15 U/L (<34); BILIRUBIN,TOTAL 1.3 MG/DL (0.3-1.2); BLOOD UREA NITROGEN 12 MG/DL (9-23); CALCIUM LEVEL 9.6 MG/DL (8.3-10.6); CARBON DIOXIDE LEVEL 32 MMOL/L (20-31); CHLORIDE LEVEL 103 MMOL/L (98-107); CHOLESTEROL LEVEL 126 MG/DL (<200); CHOLESTEROL RISK RATIO 3.66 (<5); CREATININE FOR GFR 0.72 MG/DL (0.70-1.30); GLOMERULAR FILTRATION RATE > 60.0 (>49); GLUCOSE, FASTING 93 MG/DL (74-106); HDL CHOLESTEROL 34.4 MG/DL (>40); LDL CHOLESTEROL 83.8 MG/DL (<100); NON-HDL-C 91.6 MG/DL; POTASSIUM SERUM 4.3 MMOL/L (3.5-5.1); SODIUM LEVEL 139 MMOL/L (136-145); TOTAL PROTEIN 7.4 G/DL (5.7-8.2); TRIGLYCERIDES LEVEL 39 MG/DL (<150)
[2022-12-18 11:10] LABS: THYROID STIMULATING HORMONE 0.849 uIU/ML (0.55-4.78)
[2022-12-18 11:11] LABS: TESTOSTERONE 416 NG/DL (241-827)
== END ==
LOC: M LAB 09:46
PROVIDERS: ATTEND Family Medicine
DX: I10 Essential (primary) hypertension (principal)

== ENCOUNTER → 2023-01-21 | Outpatient (REF) | payer OTHER ==
[~2023-01-21] MED LIST changes: -FLUT50SP17 NARES; +FLUTISP NARES
[2023-01-21 15:18] LABS: BASO # 0.1 10^3/uL (0.0-0.2); EOS # 0.3 10^3/uL (0.0-0.5); EOS % 4.4 % (0.0-3.0); LYMPH # 2.1 10^3/uL (1.5-5.0); LYMPH % 29.1 % (24.0-44.0); MEAN CORPUSCULAR HEMOGLOBIN 31.6 pg (27.0-33.0); MEAN CORPUSCULAR HGB CONC 33.3 g/dl (32.0-36.5); MEAN CORPUSCULAR VOLUME 94.7 fl (80.0-96.0); MONO # 0.6 10^3/uL (0.0-0.8); MONO % 8.5 % (2.0-8.0); NEUTROPHILS % 56.7 % (36.0-66.0); PLATELET COUNT, AUTOMATED 214 10^3/uL (150-450); RED BLOOD COUNT 4.75 10^6/uL (4.30-6.10); WHITE BLOOD COUNT 7.1 10^3/uL (4.0-10.0)
[2023-01-21 15:28] LABS: C REACTIVE PROTEIN QUANTITATIV < 0.40 MG/DL (<1.0)
[2023-01-21 15:29] LABS: ALBUMIN 3.8 G/DL (3.2-5.2); ALKALINE PHOSPHATASE 89 U/L (46-116); ALT/SGPT 24 U/L (7.0-40); AST/SGOT 13 U/L (<34); BILIRUBIN,DIRECT 0.4 MG/DL (<0.4); BILIRUBIN,TOTAL 1.2 MG/DL (0.3-1.2); BLOOD UREA NITROGEN 17 MG/DL (9-23); CALCIUM LEVEL 8.8 MG/DL (8.3-10.6); CARBON DIOXIDE LEVEL 30 MMOL/L (20-31); CHLORIDE LEVEL 102 MMOL/L (98-107); CREATININE FOR GFR 0.68 MG/DL (0.70-1.30); GLOMERULAR FILTRATION RATE > 60.0 (>49); GLUCOSE, FASTING 127 MG/DL (74-106); POTASSIUM SERUM 4.2 MMOL/L (3.5-5.1); SODIUM LEVEL 138 MMOL/L (136-145); TOTAL PROTEIN 7.2 G/DL (5.7-8.2)
[2023-01-21 15:39] LABS: ERYTHROCYTE SEDIMENTATION RATE 19 mm/hr (0-20)
== END ==
LOC: M PLALAB 13:22
PROVIDERS: ATTEND Internal Medicine
DX: M05.9 Rheumatoid arthritis with rheumatoid factor, unspecified (principal)

== ENCOUNTER → 2023-04-25 | Outpatient (CLI) | payer OTHER ==
[2023-04-25 13:55] LABS: C REACTIVE PROTEIN QUANTITATIV < 0.40 MG/DL (<1.0)
[2023-04-25 13:56] LABS: ALBUMIN 3.8 G/DL (3.2-5.2); ALKALINE PHOSPHATASE 91 U/L (46-116); ALT/SGPT 24 U/L (7.0-40); AST/SGOT 18 U/L (<34); BILIRUBIN,DIRECT 0.4 MG/DL (<0.4)
[2023-04-25 14:55] LABS: BASO # 0.1 10^3/uL (0.0-0.2); BASO % 0.8 % (0.0-1.0); EOS # 0.2 10^3/uL (0.0-0.5); EOS % 2.9 % (0.0-3.0); HEMATOCRIT 46.5 % (42.0-52.0); HEMOGLOBIN 15.5 g/dl (13.5-17.5); LYMPH # 1.8 10^3/uL (1.5-5.0); LYMPH % 22.3 % (24.0-44.0); MEAN CORPUSCULAR HEMOGLOBIN 31.3 pg (27.0-33.0); MEAN CORPUSCULAR HGB CONC 33.3 g/dl (32.0-36.5); MEAN CORPUSCULAR VOLUME 93.8 fl (80.0-96.0); MONO # 0.6 10^3/uL (0.0-0.8); MONO % 7.3 % (2.0-8.0); NEUTROPHILS # 5.2 10^3/uL (1.5-8.5); NEUTROPHILS % 66.3 % (36.0-66.0); PLATELET COUNT, AUTOMATED 208 10^3/uL (150-450); RED BLOOD COUNT 4.96 10^6/uL (4.30-6.10); WHITE BLOOD COUNT 7.8 10^3/uL (4.0-10.0)
[2023-04-25 15:08] LABS: ERYTHROCYTE SEDIMENTATION RATE 20 mm/hr (0-20)
== END ==
LOC: M PLALAB 09:13
PROVIDERS: ATTEND Internal Medicine
DX: M05.9 Rheumatoid arthritis with rheumatoid factor, unspecified (principal)

== ENCOUNTER → 2023-05-19 | Outpatient (CLI) | payer OTHER ==
[2023-05-19 14:35] LABS: BLOOD UREA NITROGEN 15 MG/DL (9-23); CALCIUM LEVEL 9.6 MG/DL (8.3-10.6); CARBON DIOXIDE LEVEL 30 MMOL/L (20-31); CHLORIDE LEVEL 101 MMOL/L (98-107); CREATININE FOR GFR 0.77 MG/DL (0.70-1.30); GLOMERULAR FILTRATION RATE > 60.0 (>49); GLUCOSE, FASTING 108 MG/DL (74-106); POTASSIUM SERUM 4.2 MMOL/L (3.5-5.1); SODIUM LEVEL 134 MMOL/L (136-145)
== END ==
LOC: M PLALAB 11:13
PROVIDERS: ATTEND Internal Medicine
DX: M05.9 Rheumatoid arthritis with rheumatoid factor, unspecified (principal)

== ENCOUNTER → 2023-05-25 | Outpatient (REF) | payer OTHER ==
[2023-05-25 16:19] LABS: CREATININE, URINE 243.1 MG/DL; MAU/CREAT RATIO 2.4 MCG/MG (0.0-30.0)
== END ==
LOC: M LAB REF 15:14
PROVIDERS: ATTEND Nurse Practitioner Family
DX: E11.65 Type 2 diabetes mellitus with hyperglycemia (principal)

== ENCOUNTER → 2023-07-21 | Outpatient (CLI) | payer OTHER ==
[2023-07-21 15:10] LABS: BASO # 0.1 10^3/uL (0.0-0.2); BASO % 0.7 % (0.0-1.0); EOS # 0.3 10^3/uL (0.0-0.5); EOS % 4.7 % (0.0-3.0); HEMATOCRIT 45.8 % (42.0-52.0); HEMOGLOBIN 15.4 g/dl (13.5-17.5); LYMPH % 29.3 % (24.0-44.0); MEAN CORPUSCULAR HEMOGLOBIN 31.3 pg (27.0-33.0); MEAN CORPUSCULAR HGB CONC 33.6 g/dl (32.0-36.5); MEAN CORPUSCULAR VOLUME 93.1 fl (80.0-96.0); MONO # 0.6 10^3/uL (0.0-0.8); MONO % 9.3 % (2.0-8.0); NEUTROPHILS # 3.8 10^3/uL (1.5-8.5); NEUTROPHILS % 55.7 % (36.0-66.0); PLATELET COUNT, AUTOMATED 222 10^3/uL (150-450); RED BLOOD COUNT 4.92 10^6/uL (4.30-6.10); WHITE BLOOD COUNT 6.9 10^3/uL (4.0-10.0)
[2023-07-21 15:23] LABS: ERYTHROCYTE SEDIMENTATION RATE 43 mm/hr (0-20)
[2023-07-21 15:31] LABS: C REACTIVE PROTEIN QUANTITATIV < 0.40 MG/DL (<1.0)
[2023-07-21 15:33] LABS: ALBUMIN 3.9 G/DL (3.2-5.2); ALKALINE PHOSPHATASE 87 U/L (46-116); ALT/SGPT 17 U/L (7.0-40); AST/SGOT 11 U/L (<34); BILIRUBIN,DIRECT 0.7 MG/DL (<0.4); BILIRUBIN,TOTAL 1.9 MG/DL (0.3-1.2); BLOOD UREA NITROGEN 21 MG/DL (9-23); CALCIUM LEVEL 9.5 MG/DL (8.3-10.6); CARBON DIOXIDE LEVEL 26 MMOL/L (20-31); CHLORIDE LEVEL 102 MMOL/L (98-107); CREATININE FOR GFR 0.71 MG/DL (0.70-1.30); GLOMERULAR FILTRATION RATE > 60.0 (>49); GLUCOSE, FASTING 96 MG/DL (74-106); SODIUM LEVEL 137 MMOL/L (136-145); TOTAL PROTEIN 7.4 G/DL (5.7-8.2)
== END ==
LOC: M PLALAB 10:20
PROVIDERS: ATTEND Internal Medicine
DX: M05.9 Rheumatoid arthritis with rheumatoid factor, unspecified (principal)

== ENCOUNTER → 2023-10-26 | Outpatient (CLI) | payer OTHER ==
[2023-10-26 13:16] LABS: BASO # 0.1 10^3/uL (0.0-0.2); BASO % 0.9 % (0.0-1.0); EOS # 0.3 10^3/uL (0.0-0.5); EOS % 4.2 % (0.0-3.0); HEMATOCRIT 46.2 % (42.0-52.0); HEMOGLOBIN 15.5 g/dl (13.5-17.5); LYMPH # 2.4 10^3/uL (1.5-5.0); LYMPH % 31.1 % (24.0-44.0); MEAN CORPUSCULAR HEMOGLOBIN 31.5 pg (27.0-33.0); MEAN CORPUSCULAR HGB CONC 33.5 g/dl (32.0-36.5); MEAN CORPUSCULAR VOLUME 93.9 fl (80.0-96.0); MONO # 0.6 10^3/uL (0.0-0.8); MONO % 7.4 % (2.0-8.0); NEUTROPHILS # 4.3 10^3/uL (1.5-8.5); PLATELET COUNT, AUTOMATED 215 10^3/uL (150-450); RED BLOOD COUNT 4.92 10^6/uL (4.30-6.10); WHITE BLOOD COUNT 7.7 10^3/uL (4.0-10.0)
[2023-10-26 13:23] LABS: ERYTHROCYTE SEDIMENTATION RATE 24 mm/hr (0-20)
[2023-10-26 13:42] LABS: C REACTIVE PROTEIN QUANTITATIV < 0.40 MG/DL (<1.0)
[2023-10-26 13:44] LABS: ALBUMIN 4.1 G/DL (3.2-5.2); ALKALINE PHOSPHATASE 94 U/L (46-116); ALT/SGPT 24 U/L (7.0-40); AST/SGOT 16 U/L (<34); BILIRUBIN,DIRECT 0.6 MG/DL (<0.4); BILIRUBIN,TOTAL 1.7 MG/DL (0.3-1.2); BLOOD UREA NITROGEN 17 MG/DL (9-23); CALCIUM LEVEL 10.2 MG/DL (8.3-10.6); CARBON DIOXIDE LEVEL 31 MMOL/L (20-31); CHLORIDE LEVEL 102 MMOL/L (98-107); CREATININE FOR GFR 0.76 MG/DL (0.70-1.30); GLOMERULAR FILTRATION RATE > 60.0 (>49); GLUCOSE, FASTING 100 MG/DL (74-106); POTASSIUM SERUM 4.2 MMOL/L (3.5-5.1); SODIUM LEVEL 138 MMOL/L (136-145); TOTAL PROTEIN 7.6 G/DL (5.7-8.2)
== END ==
LOC: M PLALAB 09:13
PROVIDERS: ATTEND Internal Medicine
DX: M05.9 Rheumatoid arthritis with rheumatoid factor, unspecified (principal)

== ENCOUNTER → 2023-11-08 | Outpatient (CLI) | payer OTHER ==
[2023-11-08 10:22] LABS: HEMATOCRIT 45.4 % (42.0-52.0); HEMOGLOBIN 15.2 g/dl (13.5-17.5); MEAN CORPUSCULAR HEMOGLOBIN 31.5 pg (27.0-33.0); MEAN CORPUSCULAR HGB CONC 33.5 g/dl (32.0-36.5); PLATELET COUNT, AUTOMATED 195 10^3/uL (150-450); RED BLOOD COUNT 4.83 10^6/uL (4.30-6.10); WHITE BLOOD COUNT 7.1 10^3/uL (4.0-10.0)
[2023-11-08 10:48] LABS: HEMOGLOBIN A1c 5.4 % (4.0-6.0)
[2023-11-08 10:50] LABS: ALBUMIN 3.9 G/DL (3.2-5.2); ALKALINE PHOSPHATASE 88 U/L (46-116); ALT/SGPT 25 U/L (7.0-40); AST/SGOT 15 U/L (<34); BILIRUBIN,TOTAL 1.4 MG/DL (0.3-1.2); BLOOD UREA NITROGEN 18 MG/DL (9-23); CALCIUM LEVEL 9.3 MG/DL (8.3-10.6); CARBON DIOXIDE LEVEL 31 MMOL/L (20-31); CHLORIDE LEVEL 103 MMOL/L (98-107); CHOLESTEROL LEVEL 132 MG/DL (<200); CHOLESTEROL RISK RATIO 4.23 (<5); CREATININE FOR GFR 0.77 MG/DL (0.70-1.30); GLOMERULAR FILTRATION RATE > 60.0 (>49); GLUCOSE, FASTING 98 MG/DL (74-106); HDL CHOLESTEROL 31.2 MG/DL (>40); LDL CHOLESTEROL 81.2 MG/DL (<100); NON-HDL-C 100.8 MG/DL; POTASSIUM SERUM 4.2 MMOL/L (3.5-5.1); PROSTATIC SPECIFIC AG MONITOR 0.34 NG/ML (< 4.00); SODIUM LEVEL 137 MMOL/L (136-145); TOTAL PROTEIN 7.4 G/DL (5.7-8.2); TRIGLYCERIDES LEVEL 98 MG/DL (<150)
[2023-11-08 10:53] LABS: THYROID STIMULATING HORMONE 0.736 uIU/ML (0.55-4.78)
[2023-11-08 10:54] LABS: TESTOSTERONE 405 NG/DL (241-827)
== END ==
LOC: M LAB 08:39 → M RAD 08:39
PROVIDERS: ATTEND Family Medicine
DX: R53.83 Other fatigue (principal); I10 Essential (primary) hypertension

== ENCOUNTER → 2024-01-31 | Outpatient (CLI) | payer OTHER ==
[2024-01-31 13:19] LABS: BASO # 0.1 10^3/uL (0.0-0.2); BASO % 0.8 % (0.0-1.0); EOS # 0.3 10^3/uL (0.0-0.5); EOS % 2.9 % (0.0-3.0); HEMATOCRIT 46.5 % (42.0-52.0); HEMOGLOBIN 15.3 g/dl (13.5-17.5); MEAN CORPUSCULAR HGB CONC 32.9 g/dl (32.0-36.5); MEAN CORPUSCULAR VOLUME 94.3 fl (80.0-96.0); MONO # 0.6 10^3/uL (0.0-0.8); MONO % 7.1 % (2.0-8.0); NEUTROPHILS # 5.8 10^3/uL (1.5-8.5); NEUTROPHILS % 65.7 % (36.0-66.0); PLATELET COUNT, AUTOMATED 216 10^3/uL (150-450); RED BLOOD COUNT 4.93 10^6/uL (4.30-6.10); WHITE BLOOD COUNT 8.8 10^3/uL (4.0-10.0)
[2024-01-31 13:23] LABS: C REACTIVE PROTEIN QUANTITATIV < 0.50 MG/DL (<1.0)
[2024-01-31 13:24] LABS: ALBUMIN 3.8 G/DL (3.2-5.2); ALKALINE PHOSPHATASE 98 U/L (40-129); ALT/SGPT 22 U/L (7.0-40); AST/SGOT 16 U/L (<34); BILIRUBIN,DIRECT 0.4 MG/DL (<0.4); BILIRUBIN,TOTAL 1.2 MG/DL (0.3-1.2); BLOOD UREA NITROGEN 18 MG/DL (9-23); CALCIUM LEVEL 9.6 MG/DL (8.3-10.6); CARBON DIOXIDE LEVEL 31 MMOL/L (20-31); CHLORIDE LEVEL 100 MMOL/L (98-107); CREATININE FOR GFR 0.87 MG/DL (0.70-1.30); GLOMERULAR FILTRATION RATE > 60.0 (>49); GLUCOSE, FASTING 97 MG/DL (74-106); POTASSIUM SERUM 4.6 MMOL/L (3.5-5.1); SODIUM LEVEL 140 MMOL/L (136-145); TOTAL PROTEIN 7.7 G/DL (5.7-8.2)
[2024-01-31 13:29] LABS: ERYTHROCYTE SEDIMENTATION RATE 33 mm/hr (0-20)
== END ==
LOC: M PLALAB 09:11
PROVIDERS: ATTEND Internal Medicine
DX: M05.9 Rheumatoid arthritis with rheumatoid factor, unspecified (principal)

== ENCOUNTER → 2024-04-17 | Outpatient (CLI) | payer OTHER ==
[2024-04-17 11:45] LABS: BASO # 0.1 10^3/uL (0.0-0.2); BASO % 0.8 % (0.0-1.0); EOS # 0.3 10^3/uL (0.0-0.5); EOS % 3.6 % (0.0-3.0); HEMOGLOBIN 15.4 g/dl (13.5-17.5); LYMPH # 2.3 10^3/uL (1.5-5.0); LYMPH % 29.4 % (24.0-44.0); MEAN CORPUSCULAR HEMOGLOBIN 30.6 pg (27.0-33.0); MEAN CORPUSCULAR HGB CONC 32.8 g/dl (32.0-36.5); MEAN CORPUSCULAR VOLUME 93.3 fl (80.0-96.0); MONO # 0.6 10^3/uL (0.0-0.8); MONO % 7.2 % (2.0-8.0); NEUTROPHILS # 4.6 10^3/uL (1.5-8.5); NEUTROPHILS % 58.7 % (36.0-66.0); PLATELET COUNT, AUTOMATED 231 10^3/uL (150-450); RED BLOOD COUNT 5.04 10^6/uL (4.30-6.10); WHITE BLOOD COUNT 7.8 10^3/uL (4.0-10.0)
[2024-04-17 11:50] LABS: ERYTHROCYTE SEDIMENTATION RATE 39 mm/hr (0-20)
[2024-04-17 12:15] LABS: ALBUMIN 3.9 G/DL (3.2-5.2); ALKALINE PHOSPHATASE 83 U/L (40-129); ALT/SGPT 25 U/L (7.0-40); AST/SGOT 17 U/L (<34); BILIRUBIN,DIRECT 0.4 MG/DL (<0.4); BILIRUBIN,TOTAL 1.1 MG/DL (0.3-1.2); BLOOD UREA NITROGEN 12 MG/DL (9-23); C REACTIVE PROTEIN QUANTITATIV < 0.50 MG/DL (<1.0); CALCIUM LEVEL 9.3 MG/DL (8.3-10.6); CARBON DIOXIDE LEVEL 28 MMOL/L (20-31); CHLORIDE LEVEL 102 MMOL/L (98-107); CREATININE FOR GFR 0.74 MG/DL (0.70-1.30); GLOMERULAR FILTRATION RATE > 60.0 (>49); GLUCOSE, FASTING 102 MG/DL (74-106); POTASSIUM SERUM 3.9 MMOL/L (3.5-5.1); SODIUM LEVEL 139 MMOL/L (136-145); TOTAL PROTEIN 7.5 G/DL (5.7-8.2)
== END ==
LOC: M PLALAB 08:22
PROVIDERS: ATTEND Internal Medicine
DX: M05.9 Rheumatoid arthritis with rheumatoid factor, unspecified (principal)

== ENCOUNTER → 2024-10-16 | Outpatient (CLI) | payer OTHER ==
[2024-10-16 15:09] LABS: ALT/SGPT 25 U/L (7.0-40); AST/SGOT 24 U/L (<34); C REACTIVE PROTEIN QUANTITATIV < 0.50 MG/DL (<1.0); CALCIUM LEVEL 9.5 MG/DL (8.3-10.6); CARBON DIOXIDE LEVEL 28 MMOL/L (20-31); CHLORIDE LEVEL 102 MMOL/L (98-107); CREATININE FOR GFR 0.84 MG/DL (0.70-1.30); GLOMERULAR FILTRATION RATE > 90.0 (>49); POTASSIUM SERUM 4.3 MMOL/L (3.5-5.1); SODIUM LEVEL 141 MMOL/L (136-145)
[2024-10-16 15:20] LABS: BASO # 0.0 10^3/uL (0.0-0.2); BASO % 0.6 % (0.0-1.0); EOS # 0.3 10^3/uL (0.0-0.5); EOS % 4.1 % (0.0-3.0); LYMPH # 1.9 10^3/uL (1.5-5.0); LYMPH % 27.1 % (24.0-44.0); MONO # 0.6 10^3/uL (0.0-0.8); MONO % 8.4 % (2.0-8.0); NEUTROPHILS # 4.1 10^3/uL (1.5-8.5); NEUTROPHILS % 59.5 % (36.0-66.0); PLATELET COUNT, AUTOMATED 225 10^3/uL (150-450)
[2024-10-16 15:26] LABS: ERYTHROCYTE SEDIMENTATION RATE 29 mm/hr (0-20)
== END ==
LOC: M PLALAB 09:05
PROVIDERS: ATTEND Internal Medicine
DX: M05.9 Rheumatoid arthritis with rheumatoid factor, unspecified (principal)

== ENCOUNTER 2024-10-26 08:49 | Day surgery (SDC) | payer OTHER ==
[~2024-10-26] VITALS: Ht 185.4 cm; Wt 104.8 kg
[~2024-10-26 08:49] MED LIST changes: +KETOROLAC 30 MG/ML 1 ML VIAL As Ordered ONE; +LIDOCAINE 2% 100 MG/5 ML SDV (FOR ANES.) As Ordered ONE; +ONDANSETRON 4MG 2ML VIAL As Ordered ONE; +ROCURONIUM BROMIDE 50MG/5ML VIAL As Ordered ONE; +SUGAMMADEX SODIUM 500 MG/5 ML VIAL As Ordered ONE; +dexAMETHasone 4 MG/ML 1 ML VIAL As Ordered ONE
[2024-10-26] MEDS ORDERED: DEXTROSE 50% 50 ML SYRINGE IV PRN (08:50)
[2024-10-26] MEDS ORDERED: INSULIN LISPRO (NovoLOG) PER UNIT SC PRN (08:50)
[2024-10-26] MEDS ORDERED: GLUCAGON INJ 1 MG VIAL SC PRN (08:50)
[2024-10-26] MEDS ORDERED: GLUCOSE 4 GM CHEW PO PRN (08:50)
[2024-10-26] MEDS ORDERED: LR 1,000 ML IV SCH (08:50)
[2024-10-26] MEDS ORDERED: MIDAZOLAM INJ 2 MG/2 ML VIAL As Ordered ONE (09:20)
[2024-10-26] MEDS: ceFAZolin SOD 2 GM IV ONCE IV ONE (10:09)
[2024-10-26] MEDS ORDERED: ACETAMINOPHEN 1000MG/100ML IV BAG As Ordered ONE (10:16)
[2024-10-26] MEDS ORDERED: ONDANSETRON 4MG 2ML VIAL IV PRN (11:00)
[2024-10-26 11:50] VITALS: BP 131/76; TEMP 96.8; O2SAT 95
== END 2024-10-26 12:35 | disposition home or self-care (01) ==
LOC: M SDC 08:49
PROVIDERS: ATTEND Surgery
DX: K42.9 Umbilical hernia without obstruction or gangrene (principal); E11.9 Type 2 diabetes mellitus without complications; I10 Essential (primary) hypertension; E78.00 Pure hypercholesterolemia, unspecified; G47.30 Sleep apnea, unspecified; K21.9 Gastro-esophageal reflux disease without esophagitis; M06.9 Rheumatoid arthritis, unspecified; Z79.899 Other long term (current) drug therapy; Z79.84 Long term (current) use of oral hypoglycemic drugs; Z79.85 Long-term (current) use of injectable non-insulin antidiabetic drugs; Z88.1 Allergy status to other antibiotic agents
CPT/HCPCS: 49591; 88302; 93005; C1781; J0131; J0665; J0666; J0690; J1100; J1885; J2250; J2405; J3010

== ENCOUNTER → 2024-11-01 | Outpatient (REF) | payer OTHER ==
[~2024-11-01] MED LIST changes: -KETOROLAC 30 MG/ML 1 ML VIAL As Ordered ONE; -LIDOCAINE 2% 100 MG/5 ML SDV (FOR ANES.) As Ordered ONE; -ONDANSETRON 4MG 2ML VIAL As Ordered ONE; -ROCURONIUM BROMIDE 50MG/5ML VIAL As Ordered ONE; -SUGAMMADEX SODIUM 500 MG/5 ML VIAL As Ordered ONE; -dexAMETHasone 4 MG/ML 1 ML VIAL As Ordered ONE
[2024-11-01 15:49] LABS: PLATELET COUNT, AUTOMATED 216 10^3/uL (150-450)
[2024-11-01 16:17] LABS: ALT/SGPT 27 U/L (7.0-40); AST/SGOT 22 U/L (<34); CALCIUM LEVEL 9.3 MG/DL (8.3-10.6); CARBON DIOXIDE LEVEL 30 MMOL/L (20-31); CHLORIDE LEVEL 101 MMOL/L (98-107); CHOLESTEROL LEVEL 161 MG/DL (<200); CHOLESTEROL RISK RATIO 4.33 (<5); CREATININE FOR GFR 0.81 MG/DL (0.70-1.30); GLOMERULAR FILTRATION RATE > 90.0 (>49); LDL CHOLESTEROL 88.5 MG/DL (<100); NON-HDL-C 123.9 MG/DL; POTASSIUM SERUM 4.3 MMOL/L (3.5-5.1); SODIUM LEVEL 135 MMOL/L (136-145); TRIGLYCERIDES LEVEL 177 MG/DL (<150)
[2024-11-01 16:25] LABS: PSA SCREENING 0.61 NG/ML (< 4.00)
[2024-11-01 16:51] LABS: ESTIMATED AVERAGE GLUCOSE 137.0 MG/DL (60-110)
[2024-11-01 19:32] LABS: CREATININE, URINE 192.4 MG/DL; MALB URINE SIEMENS 34.0 MG/L; MAU/CREAT RATIO 17.6 MCG/MG (0.0-30.0)
== END ==
LOC: M SFHCPLAZ 09:45
PROVIDERS: ATTEND Family Medicine
DX: I10 Essential (primary) hypertension (principal); E11.9 Type 2 diabetes mellitus without complications

== ENCOUNTER → 2025-01-15 | Outpatient (CLI) | payer OTHER ==
[2025-01-15 10:50] LABS: BASO # 0.1 10^3/uL (0.0-0.2); BASO % 0.7 % (0.0-1.0); EOS # 0.3 10^3/uL (0.0-0.5); EOS % 3.3 % (0.0-3.0); LYMPH # 2.2 10^3/uL (1.5-5.0); LYMPH % 26.6 % (24.0-44.0); MONO # 0.6 10^3/uL (0.0-0.8); MONO % 7.0 % (2.0-8.0); NEUTROPHILS # 5.0 10^3/uL (1.5-8.5); NEUTROPHILS % 62.2 % (36.0-66.0); PLATELET COUNT, AUTOMATED 218 10^3/uL (150-450)
[2025-01-15 10:57] LABS: C REACTIVE PROTEIN QUANTITATIV < 0.50 MG/DL (<1.0)
[2025-01-15 10:58] LABS: ALT/SGPT 21 U/L (7.0-40); AST/SGOT 19 U/L (<34); CALCIUM LEVEL 9.4 MG/DL (8.3-10.6); CARBON DIOXIDE LEVEL 32 MMOL/L (20-31); CHLORIDE LEVEL 102 MMOL/L (98-107); CREATININE FOR GFR 0.89 MG/DL (0.70-1.30); GLOMERULAR FILTRATION RATE > 90.0 (>49); POTASSIUM SERUM 4.6 MMOL/L (3.5-5.1); SODIUM LEVEL 143 MMOL/L (136-145)
== END ==
LOC: M PLALAB 08:41
PROVIDERS: ATTEND Internal Medicine
DX: M05.9 Rheumatoid arthritis with rheumatoid factor, unspecified (principal)

== ENCOUNTER → 2025-01-30 | Outpatient (REF) | payer OTHER | LOC: M SFHCPLAZ 09:28 | PROVIDERS: ATTEND Family Medicine | DX: E11.9 Type 2 diabetes mellitus without complications (principal) ==

== ENCOUNTER → 2025-01-30 | Outpatient (CLI) | payer OTHER ==
[2025-01-30 15:38] LABS: ESTIMATED AVERAGE GLUCOSE 126.0 MG/DL (60-110)
== END ==
LOC: M PLALAB 09:33
PROVIDERS: ATTEND Family Medicine
DX: E11.9 Type 2 diabetes mellitus without complications (principal)